=== PATIENT | male | born 1950 | race Caucasian/White ===

== ENCOUNTER 2016-07-21 19:00 | Emergency (ER) | payer BC, OTHER ==
[2016-07-21] MEDS ORDERED: ONDANSETRON 4MG/2ML VIAL (J2405) As Ordered ONE (19:59)
[2016-07-21] MEDS ORDERED: KETOROLAC 30 MG/ML VIAL (J1885) As Ordered ONE (19:59)
[2016-07-21 20:12] LABS: ALBUMIN 4.2 GM/DL (3.2-5.2); ALKALINE PHOSPHATASE 79 U/L (45-117); ALT/SGPT 56 U/L (12-78); AMYLASE 36 U/L (25-115); ANION GAP 8 MEQ/L (8-16); AST/SGOT 38 U/L (15-37); BILIRUBIN,DIRECT 0.1 MG/DL (0.0-0.2); BILIRUBIN,TOTAL 0.5 MG/DL (0.2-1.0); BLOOD UREA NITROGEN 26 MG/DL (7-18); CALCIUM LEVEL 9.7 MG/DL (8.8-10.2); CARBON DIOXIDE LEVEL 28 MEQ/L (21-32); CHLORIDE LEVEL 105 MEQ/L (98-107); CREATININE FOR GFR 1.23 MG/DL (0.70-1.30); GLOMERULAR FILTRATION RATE > 60.0 (>49); GLUCOSE, FASTING 129 MG/DL (80-110); POTASSIUM SERUM 3.7 MEQ/L (3.5-5.1); SODIUM LEVEL 141 MEQ/L (136-145); TOTAL PROTEIN 7.7 GM/DL (6.4-8.2)
[2016-07-21 20:18] LABS: BASO % 0.3 % (0.0-1.0); EOS # 0.1 K/mm3 (0.0-0.50); EOS % 0.6 % (0.0-3.0); LARGE UNSTAINED CELL # 0.1 K/mm3 (0.0-0.4); LARGE UNSTAINED CELL % 1.2 % (0.0-4.0); LYMPH # 1.3 K/mm3 (1.5-4.5); LYMPH % 14.5 % (24.0-44.0); MEAN CORPUSCULAR HEMOGLOBIN 32.8 pg (27.0-33.0); MEAN CORPUSCULAR HGB CONC 35.3 g/dl (32.0-36.5); MEAN CORPUSCULAR VOLUME 93.1 fl (80.0-96.0); MONO # 0.4 K/mm3 (0.0-0.8); MONO % 4.3 % (0.0-5.0); NEUTROPHILS # 7.2 K/mm3 (1.8-7.7); PLATELET COUNT, AUTOMATED 188 k/mm3 (150-450); RED CELL DISTRIBUTION WIDTH 12.3 % (11.5-14.5); WHITE BLOOD COUNT 9.1 K/mm3 (4.0-10.0)
[2016-07-21 20:36] LABS: CALCIUM OXALATE CRYSTALS LARGE
--- NOTE | 2016-07-21 21:00 | REPUSA ---
CT of the abdomen and pelvis without contrast Clinical statement: Pain. Technique: Multiple axial CT images were obtained from the base of the lungs to the floor of the pelv is utilizing 5 mm axial slices without administration of contrast. Coronal and sagittal reconstructio ns were also obtained. Comparison: 03/13/2014. Findings: Chest: The visualized lung bases are clear. Abdomen: The kidneys are normal in size bilaterally. There is moderate right-sided hydronephrosis cau sed by 4 mm stone in the mid right ureter. Tiny punctate stones are seen in the right renal collectin g system as well. The left renal collecting system is unremarkable. There is a large 2 cm simple cyst in the anterior right lobe of the liver. The liver, spleen, pancreas, gallbladder and adrenal glands are otherwise unremarkable. The aorta demonstrates normal caliber and contour. There is no abdominal lymphadenopathy or ascites. Pelvis: The bowel is unremarkable, with no obstructive or inflammatory changes. Left-sided diverticul osis is noted without evidence of diverticulitis. The appendix is normal. The urinary bladder is with in normal limits. There is no pelvic lymphadenopathy or ascites. The other pelvic structures appear u nremarkable. Bones: There are no suspicious osseous abnormalities seen. Multilevel degenerative disc disease with disc osteophyte complexes are seen from L2 through S1. Impression: 1. Moderate right-sided hydronephrosis and nephrolithiasis, with a 4 mm obstructing stone in the mid right ureter. 2. Left-sided diverticulosis without evidence of diverticulitis. No obstructive or inflammatory bowel changes. 3. 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
[2016-07-21] MEDS ORDERED: ONDANSETRON 4 MG ORAL DISINTEGRATING TAB (S0181) As Ordered ONE (21:54)
[2016-07-21] MEDS ORDERED: TAMSULOSIN 0.4 MG CAP As Ordered ONE (21:55)
[2016-07-21] MEDS ORDERED: NORCO 5/325MG TABLET (BULK) As Ordered ONE (21:55)
--- NOTE | 2016-07-21 22:05 | EDDOCDS ---
Physician Documentation [facility] Name: Dawood Velez Age: 65 yrs Sex: Male : 1950 Arrival Date: 07/21/2016 Time: 19:00 Bed I5 / M5 Private MD: Sherine Disposition: 07/21/16 21:43 Discharged to Home/Self Care. Impression: Calculus of ureter - WITH HYDRONEPHROSIS, 4 MM, RIGHT. - Condition is Stable. - Discharge Instructions: Kidney Stones, Ureteral Colic. - Prescriptions for Ibuprofen 600 mg Oral Tablet - take 1 tablet by ORAL route every 6 hours As needed take with food; 30 tablet. Tilden 5- 325 mg Oral Tablet - take 1 tablet by ORAL route every 6 hours As needed MDD: 4 tabs; 20 tablet. Flomax 0.4 mg Oral Capsule, Sust. Release 24 hr - take 1 capsule by ORAL route once daily 1/2 hour following the same meal each day; 30 capsule. ZOFRAN ODT 4 mg - dissolve 1 tablet by ORAL route 4 times per day As needed do not chew, do not swallow whole; 10 tablet. - Medication Reconciliation, Local Pharmacy Hours form. - Follow up: Josias Varela; When: 1 week; Reason: Recheck today's complaints, Continuance of care. Follow up: Emergency Department; When: As needed; Reason: Worsening of conditions. - Problem is new. - Symptoms have improved. - Notes: PLEASE USE MEDICATIONS INSTRUCTED, FOLLOW UP WITH DR VARELA IN 1 WEEK, RETURN TO THE ER IF THE SYMPTOMS WORSEN OR BECOME CONCERNING Historical: - Allergies: No known drug Allergies; - Home Meds: 1. Triamterene-Hydrochlorothiazid Oral 2. aspirin 81 mg Oral cpDR - PMHx: Hypertension; Kidney stones; - PSHx: none; basket procedure stone removal; - Social history: Smoking status: Patient states was never smoker of tobacco. No barriers to communication noted, The patient speaks fluent Persian, Speaks appropriately for age. - Family history: Not pertinent. - : The pt / caregiver states he / she is not on anticoagulants. Home medication list is obtained from the patient. - Exposure Risk Screening:: None identified. Vital Signs: 07/21 19:01 BP 154 / 93; Pulse 70; Resp 18; Temp 96.9(O); Pulse Ox 97% ; Weight 99.79 kg / 220 lbs; cmb Height 5 ft. 10 in. (177.80 cm); Pain 10/10; 20:20 Pain 4/10; ead 21:44 BP 134 / 82; Pulse 69; Resp 18; Temp 97.3; Pulse Ox 96% ; Pain 0/10; ajs 19:01 Body Mass Index 31.57 (99.79 kg, 177.80 cm) cmb MDM: 19:52 Undress patient appropriately for examination ordered. ck7 19:52 IV Saline Lock ordered. ck7 19:52 ketorolac 30 mg IVP once ordered. ck7 19:52 Ondansetron 4 mg IVP once ordered. ck7 19:54 Amylase Ordered. EDMS 19:54 Basic Metabolic Profile Ordered. EDMS 19:54 CBC with Diff Ordered. EDMS 19:54 Lipase Ordered. EDMS 19:54 Liver Profile Ordered. EDMS 19:54 Urinalysis Ordered. EDMS 19:54 Urine Culture Ordered. EDMS 19:54 NOTHING BY MOUTH+DIET ordered. EDMS 19:54 CT ABD & PELVIS: No Contrast Ordered. EDMS 20:42 Basic Metabolic Profile Reviewed. ck7 20:42 CBC with Diff Reviewed. ck7 20:42 Liver Profile Reviewed. ck7 20:42 Urinalysis Reviewed. ck7 20:42 Amylase Reviewed. ck7 20:42 Lipase Reviewed. ck7 21:03 Financial registration complete. ks16 21:33 CT ABD & PELVIS: No Contrast Reviewed. ck7 21:39 Physician consultation: Dr. Josias Varela was contacted at 21:38, PT IS PRIVATE PT OF ck7 DR VARELA, CALLED DR VARELA D/T HIGH BUN, ADVISED OF PRESENTATION, PHYSICAL EXAM, LABS AND IMAGAING. PT TO BE PLACED ON ZOFRAN, NORCO, MOTRIN AND FLOMAX, INCREASE FLUIDS AT HOME, STRAIN URINE MUCH POSSIBLE, FOLLOW UP WITH DR VARELA IN NEXT 7-14 DAYS, RETURN TO THE ER IF THE SYMPTOMS WORSEN OR BECOME CONCERNING. 21:42 Dispense Urine Strainer ordered. ck7 21:42 Tamsulosin Extended Release 24 hour Capsule 0.4 mg PO once ordered. ck7 21:42 HYDROcodone-acetaminophen 4 pack- 5 mg-325 mg 1 packets PO Per package directions; ck7 Dispense with patient. 1 po q4h prn for pain ordered. 21:42 Ondansetron ODT Oral Disintegrating Tablet 4 mg PO once; PLEASE DISPENSE TO GO HOME ck7 WITH ordered. Administered Medications: 20:03 Drug: ketorolac 30 mg [ketorolac 30 mg/mL (1 mL) injection solution (1 mL)] Route: IVP; dsf Site: left antecubital; 20:20 Follow up: Pain 4/10 Adult; Response: No Adverse Reaction; Pain is decreased ead 20:03 Drug: Ondansetron 4 mg [ondansetron HCl 2 mg/mL intravenous solution (2 mL)] Route: dsf IVP; Site: left antecubital; 20:21 Follow up: Response: Nausea is resolved; No Adverse Reaction ead 22:01 Drug: Tamsulosin 0.4 mg [tamsulosin 0.4 mg capsule (1 caps)] Route: PO; ead 22:01 Drug: HYDROcodone-acetaminophen 4 pack- 1 packets [hydrocodone 5 mg-acetaminophen 325 ead mg tablet (1 tabs)] {Co-Signature: dsdomingo (Trinh Reynolds RN).} {Note: for take home use.} Route: PO; 22:01 Drug: Ondansetron ODT 4 mg [ondansetron 4 mg disintegrating tablet (1 tabs)] {Note: for ead take home use.} Route: PO; Signatures: Dispatcher [employer] Talib Islas RN RN cz Fuller, Desiree, RN RN dsf Kwaczala, Christopher, RPA-C RPA-Cck7 [place], Cody Reg [id number] Teri Brown RN, RN MTDD
--- NOTE | 2016-07-21 22:05 | EDDOCDS ---
Nurse's Notes [facility] Name: Dawood Velez Age: 65 yrs Sex: Male : 1950 Arrival Date: 07/21/2016 Time: 19:00 Bed I5 / M5 Private MD: Sherine Diagnosis: Calculus of ureter-WITH HYDRONEPHROSIS, 4 MM, RIGHT Presentation: 07/21 19:11 Presenting complaint: Patient states: he has had right sided flank and abdominal pain cz since 1600 states had some pain on new years zach. Adult Sepsis Screening: The patient does not have new or worsening altered mentation. Patient's respiratory rate is less than 22. Systolic blood pressure is greater than 100. Patient has a qSOFA score of 0- Negative Sepsis Screen. Suicide/Homicide risk assessment- the patient denies having any suicidal and/or homicidal ideations and does not present with any other emotional, behavioral or mental health complaints. Status: Patient is not a rn patient services or dependent. Transition of care: patient was not received from another setting of care. 19:11 Acuity: XIAO Level 3 cz 19:11 Method Of Arrival: Walkin/Carried/Asstd cz Triage Assessment: 19:14 General: Appears uncomfortable. Pain: Location: low back area and right flank Pain cz currently is 10 out of 10 on a pain scale. HIV screening NA for this visit Offered previously. Historical: - Allergies: No known drug Allergies; - Home Meds: 1. Triamterene-Hydrochlorothiazid Oral 2. aspirin 81 mg Oral cpDR - PMHx: Hypertension; Kidney stones; - PSHx: none; basket procedure stone removal; - Social history: Smoking status: Patient states was never smoker of tobacco. No barriers to communication noted, The patient speaks fluent Belarusian, Speaks appropriately for age. - Family history: Not pertinent. - : The pt / caregiver states he / she is not on anticoagulants. Home medication list is obtained from the patient. - Exposure Risk Screening:: None identified. Screenin:03 Screening information is obtained from the patient. Fall risk: No risks identified. dsf Assistance ADL's: requires no assistance with activities of daily living. Abuse/DV Screen: The patient / caregiver reports he/she is: not in a situation that causes fear, pain or injury. Nutritional screening: No deficits noted. Advance Directives: Currently, there is no health care proxy. home support is adequate. Assessment: 19:29 General: Appears uncomfortable, Behavior is appropriate for age, cooperative. ead Neurological: No deficits noted. Respiratory: Airway is patent Respiratory effort is even, unlabored. Derm: Skin is pink, warm & dry. 20:31 General: Appears in no apparent distress, comfortable, Behavior is appropriate for age, dsf cooperative, pt walked back from CT . Pain: Location: right flank Pain currently is 2 out of 10 on a pain scale. Neurological: Level of Consciousness is awake, alert. Cardiovascular: No deficits noted. Respiratory: No deficits noted. GI: Abdomen is non- distended. Derm: Skin is pink, warm & dry. 22:02 Adult Sepsis Screening: The patient does not have new or worsening altered mentation. dsf Patient's respiratory rate is less than 22. Systolic blood pressure is greater than 100. Patient has a qSOFA score of 0- Negative Sepsis Screen. General: Appears in no apparent distress, comfortable, Behavior is appropriate for age, cooperative. Pain: Pain currently is 2 out of 10 on a pain scale. Neurological: Level of Consciousness is awake, alert. Cardiovascular: Capillary refill < 3 seconds. Respiratory: Airway is patent Respiratory effort is even, unlabored, Respiratory pattern is regular, symmetrical. GI: Abdomen is non- distended Bowel sounds present X 4 quads. Abd is soft and non tender X 4 quads. Derm: Skin is pink, warm & dry. Vital Signs: 19:01 BP 154 / 93; Pulse 70; Resp 18; Temp 96.9(O); Pulse Ox 97% ; Weight 99.79 kg; Height 5 cmb ft. 10 in. (177.80 cm); Pain 10/10; 20:20 Pain 4/10; ead 21:44 BP 134 / 82; Pulse 69; Resp 18; Temp 97.3; Pulse Ox 96% ; Pain 0/10; ajs 19:01 Body Mass Index 31.57 (99.79 kg, 177.80 cm) [facility] Vitals: 19:01 Log In Time: July 21, 2016 at 18:59. b ED Course: 19:00 Patient visited by Mirian Perdomo. cmb 19:00 Patient moved to Waiting [facility] 19:01 Sherine is Private Physician. cmb 19:02 Patient moved to Pre RCE cmb 19:13 Triage Initiated cz 19:16 Patient moved to I5 / M5 dsf 19:29 Inserted saline lock: 20 gauge in left antecubital area and blood collected. The ead patient tolerated the procedure well. 19:31 Patient visited by Teri Brown RN. ead 19:50 K[facility]barca [facility]C [facility] ck7 19:50 Vincent Johnson MD is Attending Physician. ck7 19:50 Patient visited by Kali Abarca RPA-C. ck7 20:20 Patient visited by eTri Brown RN. ead 20:21 The patient / caregiver is instructed regarding the plan of care and ED course. Patient ead has correct armband on for positive identification. Placed in gown. Bed in low position. Call light in reach. Side rails up X 1. Adult w/ patient. Warm blanket given. 20:21 Urinalysis Sent. ead 20:21 Urine Culture Sent. ead 20:31 Patient visited by Trinh Reynolds RN. dsf 21:02 Patient visited by Kali Abarca RPA-C. ck7 21:33 CT ABD & PELVIS: No Contrast Returned. EDMS 21:39 Patient visited by Kali Abarca RPA-C. ck7 21:42 Josias Lynch is Referral Physician. ck7 21:45 Patient visited by Marissa Rubin. ajs 22:03 Discontinued lock intact, bleeding controlled, pressure dressing applied, No dsf redness/swelling at site. No procedures done that require assistance. Administered Medications: 20:03 Drug: ketorolac 30 mg [ketorolac 30 mg/mL (1 mL) injection solution (1 mL)] Route: IVP; dsf Site: left antecubital; 20:20 Follow up: Pain 4/10 Adult; Response: No Adverse Reaction; Pain is decreased ead 20:03 Drug: Ondansetron 4 mg [ondansetron HCl 2 mg/mL intravenous solution (2 mL)] Route: dsf IVP; Site: left antecubital; 20:21 Follow up: Response: Nausea is resolved; No Adverse Reaction ead 22:01 Drug: Tamsulosin 0.4 mg [tamsulosin 0.4 mg capsule (1 caps)] Route: PO; ead 22:01 Drug: HYDROcodone-acetaminophen 4 pack- 1 packets [hydrocodone 5 mg-acetaminophen 325 ead mg tablet (1 tabs)] {Co-Signature: dsf (Trinh Reynolds RN).} {Note: for take home use.} Route: PO; 22:01 Drug: Ondansetron ODT 4 mg [ondansetron 4 mg disintegrating tablet (1 tabs)] {Note: for ead take home use.} Route: PO; Order Results: Lab Order: Amylase; SPEC'M 07/21/16 19:27 Test: AMYLASE; Value: 36; Range: 25-115; Units: U/L; Status: F Lab Order: Basic Metabolic Profile; SPEC'M 07/21/16 19:27 Test: GLUCOSE, FASTING; Value: 129; Range: 80-110; Abnormal: Above high normal; Units: MG/DL; Status: F Test: BLOOD UREA NITROGEN; Value: 26; Range: 7-18; Abnormal: Above high normal; Units: MG/DL; Status: F Test: CREATININE FOR GFR; Value: 1.23; Range: 0.70-1.30; Units: MG/DL; Status: F Test: GLOMERULAR FILTRATION RATE; Value: > 60.0; Range: >49; Status: F Test: SODIUM LEVEL; Value: 141; Range: 136-145; Units: MEQ/L; Status: F Test: POTASSIUM SERUM; Value: 3.7; Range: 3.5-5.1; Units: MEQ/L; Status: F Test: CHLORIDE LEVEL; Value: 105; Range: 98-107; Units: MEQ/L; Status: F Test: CARBON DIOXIDE LEVEL; Value: 28; Range: 21-32; Units: MEQ/L; Status: F Test: ANION GAP; Value: 8; Range: 8-16; Units: MEQ/L; Status: F Test: CALCIUM LEVEL; Value: 9.7; Range: 8.8-10.2; Units: MG/DL; Status: F Test Note: ; Units are mL/min/1.73 m2 Chronic Kidney Disease Staging per NKF: Stage I & II GFR >=60 Normal to Mildly Decreased Stage III GFR 30-59 Moderately Decreased Stage IV GFR 15-29 Severely Decreased Stage V GFR <15 Very Little GFR Left ESRD GFR <15 on STATISTICAL PROGRAMMER Lab Order: CBC with Diff; [facility] 07/21/16 19:27 Test: WHITE BLOOD COUNT; Value: 9.1; Range: 4.0-10.0; Units: K/mm3; Status: F Test: RED BLOOD COUNT; Value: 5.12; Range: 4.30-6.10; Units: M/mm3; Status: F Test: HEMOGLOBIN; Value: 16.8; Range: 14.0-18.0; Units: g/dl; Status: F Test: HEMATOCRIT; Value: 47.6; Range: 42.0-52.0; Units: %; Status: F Test: MEAN CORPUSCULAR VOLUME; Value: 93.1; Range: 80.0-96.0; Units: fl; Status: F Test: MEAN CORPUSCULAR HEMOGLOBIN; Value: 32.8; Range: 27.0-33.0; Units: pg; Status: F Test: MEAN CORPUSCULAR HGB CONC; Value: 35.3; Range: 32.0-36.5; Units: g/dl; Status: F Test: RED CELL DISTRIBUTION WIDTH; Value: 12.3; Range: 11.5-14.5; Units: %; Status: F Test: PLATELET COUNT, AUTOMATED; Value: 188; Range: 150-450; Units: k/mm3; Status: F Test: NEUTROPHILS %; Value: 79.0; Range: 36.0-66.0; Abnormal: Above high normal; Units: %; Status: F Test: LYMPH %; Value: 14.5; Range: 24.0-44.0; Abnormal: Below low normal; Units: %; Status: F Test: MONO %; Value: 4.3; Range: 0.0-5.0; Units: %; Status: F Test: EOS %; Value: 0.6; Range: 0.0-3.0; Units: %; Status: F Test: BASO %; Value: 0.3; Range: 0.0-1.0; Units: %; Status: F Test: LARGE UNSTAINED CELL %; Value: 1.2; Range: 0.0-4.0; Units: %; Status: F Test: NEUTROPHILS #; Value: 7.2; Range: 1.8-7.7; Units: K/mm3; Status: F Test: LYMPH #; Value: 1.3; Range: 1.5-4.5; Abnormal: Below low normal; Units: K/mm3; Status: F Test: MONO #; Value: 0.4; Range: 0.0-0.8; Units: K/mm3; Status: F Test: EOS #; Value: 0.1; Range: 0.0-0.50; Units: K/mm3; Status: F Test: BASO #; Value: 0.0; Range: 0.0-0.2; Units: K/mm3; Status: F Test: LARGE UNSTAINED CELL #; Value: 0.1; Range: 0.0-0.4; Units: K/mm3; Status: F Lab Order: Lipase; [facility] 07/21/16 19:27 Test: LIPASE; Value: 84; Range: 73-393; Units: U/L; Status: F Lab Order: Liver Profile; [facility] 07/21/16 19:27 Test: AST/SGOT; Value: 38; Range: 15-37; Abnormal: Above high normal; Units: U/L; Status: F Test: ALT/SGPT; Value: 56; Range: 12-78; Units: U/L; Status: F Test: ALKALINE PHOSPHATASE; Value: 79; Range: 45-117; Units: U/L; Status: F Test: BILIRUBIN,TOTAL; Value: 0.5; Range: 0.2-1.0; Units: MG/DL; Status: F Test: BILIRUBIN,DIRECT; Value: 0.1; Range: 0.0-0.2; Units: MG/DL; Status: F Test: TOTAL PROTEIN; Value: 7.7; Range: 6.4-8.2; Units: GM/DL; Status: F Test: ALBUMIN; Value: 4.2; Range: 3.2-5.2; Units: GM/DL; Status: F Test: ALBUMIN/GLOBULIN RATIO; Value: 1.20; Range: 1.00-1.93; Status: F Lab Order: Urinalysis; [facility] 07/21/16 20:12 Test: APPEARANCE, URINE; Value: HAZY; Range: CLEAR; Status: F Test: COLOR, URINE; Value: YELLOW; Range: YELLOW; Status: F Test: PH,URINE; Value: 5.0; Range: 5.0-9.0; Units: UNITS; Status: F Test: SPECIFIC GRAVITY URINE AUTO; Value: 1.023; Range: 1.002-1.035; Status: F Test: PROTEIN, URINE AUTO; Value: 1+; Range: NEGATIVE; Abnormal: Above high normal; Units: mg/dL; Status: F Test: GLUCOSE, URINE (UA) AUTO; Value: NEGATIVE; Range: NEGATIVE; Units: mg/dL; Status: F Test: KETONE, URINE AUTO; Value: 1+; Range: NEGATIVE; Abnormal: Above high normal; Units: mg/dL; Status: F Test: UROBILINOGEN, URINE AUTO; Value: 0.2; Range: 0.0-2.0; Units: mg/dL; Status: F Test: BILIRUBIN, URINE AUTO; Value: NEGATIVE; Range: NEGATIVE; Status: F Test: NITRITE, URINE AUTO; Value: NEGATIVE; Range: NEGATIVE; Status: F Test: LEUKOCYTE ESTERASE, URINE AUTO; Value: NEGATIVE; Range: NEGATIVE; Status: F Test: BLOOD, URINE BLOOD; Value: 3+; Range: NEGATIVE; Abnormal: Above high normal; Status: F Test: WBC, URINE AUTO; Value: 4; Range: 0-3; Abnormal: Above high normal; Units: /HPF; Status: F Test: RBC, URINE AUTO; Value: 142; Range: 0-3; Abnormal: Above high normal; Units: /HPF; Status: F Test: BACTERIA, URINE AUTO; Value: NEGATIVE; Range: NEGATIVE; Status: F Test: SQUAMOUS EPITHELIAL CELL UR AU; Value: 0; Range: 0-6; Units: /HPF; Status: F Test: MUCUS, URINE; Value: SMALL; Range: NEGATIVE; Status: F Test: HYALINE CAST, URINE AUTO; Value: 0; Range: 0-1; Units: /LPF; Status: F Test: AMORPHOUS SEDIMENT; Value: SMALL; Range: NEGATIVE; Abnormal: Above high normal; Status: F Test: CALCIUM OXALATE CRYSTALS; Value: LARGE; Range: NONE; Status: F Radiology Order: CT ABD & PELVIS: No Contrast Test: CT ABD & PELVIS: No Contrast REASON FOR EXAMINATION: Renal colic; ; CT of the abdomen and pelvis without contrast; Clinical statement: Pain.; Technique: Multiple axial CT images were obtained from the base of the lungs to the floor of the pelv; is utilizing 5 mm axial slices without administration of contrast. Coronal and sagittal reconstructio; ns were also obtained.; Comparison: 03/13/2014.; Findings:; Chest: The visualized lung bases are clear.; Abdomen: The kidneys are normal in size bilaterally. There is moderate right-sided hydronephrosis cau; sed by 4 mm stone in the mid right ureter. Tiny punctate stones are seen in the right renal collectin; g system as well. The left renal collecting system is unremarkable. There is a large 2 cm simple cyst; in the anterior right lobe of the liver. The liver, spleen, pancreas, gallbladder and adrenal glands; are otherwise unremarkable. The aorta demonstrates normal caliber and contour. There is no abdominal; lymphadenopathy or ascites.; Pelvis: The bowel is unremarkable, with no obstructive or inflammatory changes. Left-sided diverticul; osis is noted without evidence of diverticulitis. The appendix is normal. The urinary bladder is with; in normal limits. There is no pelvic lymphadenopathy or ascites. The other pelvic structures appear u; nremarkable.; Bones: There are no suspicious osseous abnormalities seen. Multilevel degenerative disc disease with; disc osteophyte complexes are seen from L2 through S1.; Impression:; 1. Moderate right-sided hydronephrosis and nephrolithiasis, with a 4 mm obstructing stone in the mid; right ureter.; 2. Left-sided diverticulosis without evidence of diverticulitis. No obstructive or inflammatory bowel; changes.; 3. 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 ck7 22:03 Discharge Assessment: Patient awake, alert and oriented x 3. No cognitive and/or dsf functional deficits noted. Patient verbalized understanding of disposition instructions. patient administered narcotics - no. The following High Risk Discharge criteria are identified: None. Discharged to home ambulatory. Condition: stable. Discharge instructions given to patient, Instructed on discharge instructions, follow up and referral plans. medication usage, no driving heavy equipment, Demonstrated understanding of instructions, medications, Pt was receptive of discharge instructions/ teaching. Prescriptions given X 4. CT Study completed. Property sent home with patient. 22:03 Patient left the ED. dsf Signatures: Dispatcher [employer] Talib Islas, Trinh Ling RN, RN RN dsf Marissa Rubin [place] cmb Kwaczala, Christopher, RPA-C RPA-Cck7 Teri Brown RN RN ead Desiree Fuller RN dsf MTDD
--- NOTE | 2016-07-23 23:04 | EDDOCDS ---
Nurse's Notes [facility], [place] Name: Dawood Velez Age: 65 yrs Sex: Male : 1950 Arrival Date: 07/21/2016 Time: 19:00 Bed I5 / M5 Private MD: Sherine Diagnosis: Calculus of ureter-WITH HYDRONEPHROSIS, 4 MM, RIGHT Presentation: 07/21 19:11 Presenting complaint: Patient states: he has had right sided flank and abdominal pain cz since 1600 states had some pain on new years zach. Adult Sepsis Screening: The patient does not have new or worsening altered mentation. Patient's respiratory rate is less than 22. Systolic blood pressure is greater than 100. Patient has a qSOFA score of 0- Negative Sepsis Screen. Suicide/Homicide risk assessment- the patient denies having any suicidal and/or homicidal ideations and does not present with any other emotional, behavioral or mental health complaints. Status: Patient is not a food service agent or dependent. Transition of care: patient was not received from another setting of care. 19:11 Acuity: XIAO Level 3 cz 19:11 Method Of Arrival: Walkin/Carried/Asstd cz Triage Assessment: 19:14 General: Appears uncomfortable. Pain: Location: low back area and right flank Pain cz currently is 10 out of 10 on a pain scale. HIV screening NA for this visit Offered previously. Historical: - Allergies: No known drug Allergies; - Home Meds: 1. Triamterene-Hydrochlorothiazid Oral 2. aspirin 81 mg Oral cpDR - PMHx: Hypertension; Kidney stones; - PSHx: none; basket procedure stone removal; - Social history: Smoking status: Patient states was never smoker of tobacco. No barriers to communication noted, The patient speaks fluent Turkish, Speaks appropriately for age. - Family history: Not pertinent. - : The pt / caregiver states he / she is not on anticoagulants. Home medication list is obtained from the patient. - Exposure Risk Screening:: None identified. Screenin:03 Screening information is obtained from the patient. Fall risk: No risks identified. dsf Assistance ADL's: requires no assistance with activities of daily living. Abuse/DV Screen: The patient / caregiver reports he/she is: not in a situation that causes fear, pain or injury. Nutritional screening: No deficits noted. Advance Directives: Currently, there is no health care proxy. home support is adequate. Assessment: 19:29 General: Appears uncomfortable, Behavior is appropriate for age, cooperative. ead Neurological: No deficits noted. Respiratory: Airway is patent Respiratory effort is even, unlabored. Derm: Skin is pink, warm & dry. 20:31 General: Appears in no apparent distress, comfortable, Behavior is appropriate for age, dsf cooperative, pt walked back from CT . Pain: Location: right flank Pain currently is 2 out of 10 on a pain scale. Neurological: Level of Consciousness is awake, alert. Cardiovascular: No deficits noted. Respiratory: No deficits noted. GI: Abdomen is non- distended. Derm: Skin is pink, warm & dry. 22:02 Adult Sepsis Screening: The patient does not have new or worsening altered mentation. dsf Patient's respiratory rate is less than 22. Systolic blood pressure is greater than 100. Patient has a qSOFA score of 0- Negative Sepsis Screen. General: Appears in no apparent distress, comfortable, Behavior is appropriate for age, cooperative. Pain: Pain currently is 2 out of 10 on a pain scale. Neurological: Level of Consciousness is awake, alert. Cardiovascular: Capillary refill < 3 seconds. Respiratory: Airway is patent Respiratory effort is even, unlabored, Respiratory pattern is regular, symmetrical. GI: Abdomen is non- distended Bowel sounds present X 4 quads. Abd is soft and non tender X 4 quads. Derm: Skin is pink, warm & dry. Vital Signs: 19:01 BP 154 / 93; Pulse 70; Resp 18; Temp 96.9(O); Pulse Ox 97% ; Weight 99.79 kg; Height 5 cmb ft. 10 in. (177.80 cm); Pain 10/10; 20:20 Pain 4/10; ead 21:44 BP 134 / 82; Pulse 69; Resp 18; Temp 97.3; Pulse Ox 96% ; Pain 0/10; ajs 19:01 Body Mass Index 31.57 (99.79 kg, 177.80 cm) [facility] Vitals: 19:01 Log In Time: July 21, 2016 at 18:59. b ED Course: 19:00 Patient visited by Mirian Perdomo. cmb 19:00 Patient moved to Waiting [facility] 19:01 Sherine is Private Physician. cmb 19:02 Patient moved to Pre RCE cmb 19:13 Triage Initiated cz 19:16 Patient moved to I5 / M5 dsf 19:29 Inserted saline lock: 20 gauge in left antecubital area and blood collected. The ead patient tolerated the procedure well. 19:31 Patient visited by Teri Brown RN. ead 19:50 [facility] ck[facility] 19:50 Vincent Johnson MD is Attending Physician. ck7 19:50 Patient visited by Kali Abarca RPA-C. ck7 20:20 Patient visited by Teri Brown RN. ead 20:21 The patient / caregiver is instructed regarding the plan of care and ED course. Patient ead has correct armband on for positive identification. Placed in gown. Bed in low position. Call light in reach. Side rails up X 1. Adult w/ patient. Warm blanket given. 20:21 Urinalysis Sent. ead 20:21 Urine Culture Sent. ead 20:31 Patient visited by Trinh Reynolds RN. dsf 21:02 Patient visited by Kali Abarca RPA-C. ck7 21:33 CT ABD & PELVIS: No Contrast Returned. EDMS 21:39 Patient visited by Kali Abarca RPA-C. ck7 21:42 Josias Lynch is Referral Physician. ck7 21:45 Patient visited by Marissa Rubin. ajs 22:03 Discontinued lock intact, bleeding controlled, pressure dressing applied, No dsf redness/swelling at site. No procedures done that require assistance. 23:02 [facility] Payment Agreement was scanned into [employer] and attached to record. [email or web address] 07/22 12:00 T-Sheet-- Draft Copy was scanned into [employer] and attached to record. gb Administered Medications: 07/21 20:03 Drug: ketorolac 30 mg [ketorolac 30 mg/mL (1 mL) injection solution (1 mL)] Route: IVP; dsf Site: left antecubital; 20:20 Follow up: Pain 4/10 Adult; Response: No Adverse Reaction; Pain is decreased ead 20:03 Drug: Ondansetron 4 mg [ondansetron HCl 2 mg/mL intravenous solution (2 mL)] Route: dsf IVP; Site: left antecubital; 20:21 Follow up: Response: Nausea is resolved; No Adverse Reaction ead 22: Drug: Tamsulosin 0.4 mg [tamsulosin 0.4 mg capsule (1 caps)] Route: PO; ead 22:01 Drug: HYDROcodone-acetaminophen 4 pack- 1 packets [hydrocodone 5 mg-acetaminophen 325 ead mg tablet (1 tabs)] {Co-Signature: dsf (Trinh Reynolds RN).} {Note: for take home use.} Route: PO; 22:01 Drug: Ondansetron ODT 4 mg [ondansetron 4 mg disintegrating tablet (1 tabs)] {Note: for ead take home use.} Route: PO; Order Results: Lab Order: Amylase; SPEC'M 07/21/16 19:27 Test: AMYLASE; Value: 36; Range: 25-115; Units: U/L; Status: F Lab Order: Basic Metabolic Profile; SPEC'M 07/21/16 19:27 Test: GLUCOSE, FASTING; Value: 129; Range: 80-110; Abnormal: Above high normal; Units: MG/DL; Status: F Test: BLOOD UREA NITROGEN; Value: 26; Range: 7-18; Abnormal: Above high normal; Units: MG/DL; Status: F Test: CREATININE FOR GFR; Value: 1.23; Range: 0.70-1.30; Units: MG/DL; Status: F Test: GLOMERULAR FILTRATION RATE; Value: > 60.0; Range: >49; Status: F Test: SODIUM LEVEL; Value: 141; Range: 136-145; Units: MEQ/L; Status: F Test: POTASSIUM SERUM; Value: 3.7; Range: 3.5-5.1; Units: MEQ/L; Status: F Test: CHLORIDE LEVEL; Value: 105; Range: 98-107; Units: MEQ/L; Status: F Test: CARBON DIOXIDE LEVEL; Value: 28; Range: 21-32; Units: MEQ/L; Status: F Test: ANION GAP; Value: 8; Range: 8-16; Units: MEQ/L; Status: F Test: CALCIUM LEVEL; Value: 9.7; Range: 8.8-10.2; Units: MG/DL; Status: F Test Note: ; Units are mL/min/1.73 m2 Chronic Kidney Disease Staging per NKF: Stage I & II GFR >=60 Normal to Mildly Decreased Stage III GFR 30-59 Moderately Decreased Stage IV GFR 15-29 Severely Decreased Stage V GFR <15 Very Little GFR Left ESRD GFR <15 on POLICE [employer] ATTENDANT Lab Order: CBC with Diff; SPEC'M 07/21/16 19:27 Test: WHITE BLOOD COUNT; Value: 9.1; Range: 4.0-10.0; Units: K/mm3; Status: F Test: RED BLOOD COUNT; Value: 5.12; Range: 4.30-6.10; Units: M/mm3; Status: F Test: HEMOGLOBIN; Value: 16.8; Range: 14.0-18.0; Units: g/dl; Status: F Test: HEMATOCRIT; Value: 47.6; Range: 42.0-52.0; Units: %; Status: F Test: MEAN CORPUSCULAR VOLUME; Value: 93.1; Range: 80.0-96.0; Units: fl; Status: F Test: MEAN CORPUSCULAR HEMOGLOBIN; Value: 32.8; Range: 27.0-33.0; Units: pg; Status: F Test: MEAN CORPUSCULAR HGB CONC; Value: 35.3; Range: 32.0-36.5; Units: g/dl; Status: F Test: RED CELL DISTRIBUTION WIDTH; Value: 12.3; Range: 11.5-14.5; Units: %; Status: F Test: PLATELET COUNT, AUTOMATED; Value: 188; Range: 150-450; Units: k/mm3; Status: F Test: NEUTROPHILS %; Value: 79.0; Range: 36.0-66.0; Abnormal: Above high normal; Units: %; Status: F Test: LYMPH %; Value: 14.5; Range: 24.0-44.0; Abnormal: Below low normal; Units: %; Status: F Test: MONO %; Value: 4.3; Range: 0.0-5.0; Units: %; Status: F Test: EOS %; Value: 0.6; Range: 0.0-3.0; Units: %; Status: F Test: BASO %; Value: 0.3; Range: 0.0-1.0; Units: %; Status: F Test: LARGE UNSTAINED CELL %; Value: 1.2; Range: 0.0-4.0; Units: %; Status: F Test: NEUTROPHILS #; Value: 7.2; Range: 1.8-7.7; Units: K/mm3; Status: F Test: LYMPH #; Value: 1.3; Range: 1.5-4.5; Abnormal: Below low normal; Units: K/mm3; Status: F Test: MONO #; Value: 0.4; Range: 0.0-0.8; Units: K/mm3; Status: F Test: EOS #; Value: 0.1; Range: 0.0-0.50; Units: K/mm3; Status: F Test: BASO #; Value: 0.0; Range: 0.0-0.2; Units: K/mm3; Status: F Test: LARGE UNSTAINED CELL #; Value: 0.1; Range: 0.0-0.4; Units: K/mm3; Status: F Lab Order: Lipase; SPEC' 07/21/16 19:27 Test: LIPASE; Value: 84; Range: 73-393; Units: U/L; Status: F Lab Order: Liver Profile; SPEC' 07/21/16 19:27 Test: AST/SGOT; Value: 38; Range: 15-37; Abnormal: Above high normal; Units: U/L; Status: F Test: ALT/SGPT; Value: 56; Range: 12-78; Units: U/L; Status: F Test: ALKALINE PHOSPHATASE; Value: 79; Range: 45-117; Units: U/L; Status: F Test: BILIRUBIN,TOTAL; Value: 0.5; Range: 0.2-1.0; Units: MG/DL; Status: F Test: BILIRUBIN,DIRECT; Value: 0.1; Range: 0.0-0.2; Units: MG/DL; Status: F Test: TOTAL PROTEIN; Value: 7.7; Range: 6.4-8.2; Units: GM/DL; Status: F Test: ALBUMIN; Value: 4.2; Range: 3.2-5.2; Units: GM/DL; Status: F Test: ALBUMIN/GLOBULIN RATIO; Value: 1.20; Range: 1.00-1.93; Status: F Lab Order: Urinalysis; SPEC'M 07/21/16 20:12 Test: APPEARANCE, URINE; Value: HAZY; Range: CLEAR; Status: F Test: COLOR, URINE; Value: YELLOW; Range: YELLOW; Status: F Test: PH,URINE; Value: 5.0; Range: 5.0-9.0; Units: UNITS; Status: F Test: SPECIFIC GRAVITY URINE AUTO; Value: 1.023; Range: 1.002-1.035; Status: F Test: PROTEIN, URINE AUTO; Value: 1+; Range: NEGATIVE; Abnormal: Above high normal; Units: mg/dL; Status: F Test: GLUCOSE, URINE (UA) AUTO; Value: NEGATIVE; Range: NEGATIVE; Units: mg/dL; Status: F Test: KETONE, URINE AUTO; Value: 1+; Range: NEGATIVE; Abnormal: Above high normal; Units: mg/dL; Status: F Test: UROBILINOGEN, URINE AUTO; Value: 0.2; Range: 0.0-2.0; Units: mg/dL; Status: F Test: BILIRUBIN, URINE AUTO; Value: NEGATIVE; Range: NEGATIVE; Status: F Test: NITRITE, URINE AUTO; Value: NEGATIVE; Range: NEGATIVE; Status: F Test: LEUKOCYTE ESTERASE, URINE AUTO; Value: NEGATIVE; Range: NEGATIVE; Status: F Test: BLOOD, URINE BLOOD; Value: 3+; Range: NEGATIVE; Abnormal: Above high normal; Status: F Test: WBC, URINE AUTO; Value: 4; Range: 0-3; Abnormal: Above high normal; Units: /HPF; Status: F Test: RBC, URINE AUTO; Value: 142; Range: 0-3; Abnormal: Above high normal; Units: /HPF; Status: F Test: BACTERIA, URINE AUTO; Value: NEGATIVE; Range: NEGATIVE; Status: F Test: SQUAMOUS EPITHELIAL CELL UR AU; Value: 0; Range: 0-6; Units: /HPF; Status: F Test: MUCUS, URINE; Value: SMALL; Range: NEGATIVE; Status: F Test: HYALINE CAST, URINE AUTO; Value: 0; Range: 0-1; Units: /LPF; Status: F Test: AMORPHOUS SEDIMENT; Value: SMALL; Range: NEGATIVE; Abnormal: Above high normal; Status: F Test: CALCIUM OXALATE CRYSTALS; Value: LARGE; Range: NONE; Status: F Lab Order: Urine Culture; SPEC'M 07/21/16 20:13 Test: URINE CULTURE; Value: URINE CULTURE RESULT NO GROWTH; Status: F Radiology Order: CT ABD & PELVIS: No Contrast Test: CT ABD & PELVIS: No Contrast REASON FOR EXAMINATION: Renal colic; ; CT of the abdomen and pelvis without contrast; Clinical statement: Pain.; Technique: Multiple axial CT images were obtained from the base of the lungs to the floor of the pelv; is utilizing 5 mm axial slices without administration of contrast. Coronal and sagittal reconstructio; ns were also obtained.; Comparison: 03/13/2014.; Findings:; Chest: The visualized lung bases are clear.; Abdomen: The kidneys are normal in size bilaterally. There is moderate right-sided hydronephrosis cau; sed by 4 mm stone in the mid right ureter. Tiny punctate stones are seen in the right renal collectin; g system as well. The left renal collecting system is unremarkable. There is a large 2 cm simple cyst; in the anterior right lobe of the liver. The liver, spleen, pancreas, gallbladder and adrenal glands; are otherwise unremarkable. The aorta demonstrates normal caliber and contour. There is no abdominal; lymphadenopathy or ascites.; Pelvis: The bowel is unremarkable, with no obstructive or inflammatory changes. Left-sided diverticul; osis is noted without evidence of diverticulitis. The appendix is normal. The urinary bladder is with; in normal limits. There is no pelvic lymphadenopathy or ascites. The other pelvic structures appear u; nremarkable.; Bones: There are no suspicious osseous abnormalities seen. Multilevel degenerative disc disease with; disc osteophyte complexes are seen from L2 through S1.; Impression:; 1. Moderate right-sided hydronephrosis and nephrolithiasis, with a 4 mm obstructing stone in the mid; right ureter.; 2. Left-sided diverticulosis without evidence of diverticulitis. No obstructive or inflammatory bowel; changes.; 3. 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 ck7 22:03 Discharge Assessment: Patient awake, alert and oriented x 3. No cognitive and/or dsf functional deficits noted. Patient verbalized understanding of disposition instructions. patient administered narcotics - no. The following High Risk Discharge criteria are identified: None. Discharged to home ambulatory. Condition: stable. Discharge instructions given to patient, Instructed on discharge instructions, follow up and referral plans. medication usage, no driving heavy equipment, Demonstrated understanding of instructions, medications, Pt was receptive of discharge instructions/ teaching. Prescriptions given X 4. CT Study completed. Property sent home with patient. 22:03 Patient left the ED. dsf Signatures: Dispatcher [employer] EDMS Talib Mckeon, RN RN cz eBthanie Rodas, Reg Reg gb Trinh Reynolds RN RN dsf Marissa Rubin [place] cmb Kwaczala, Christopher, RPA-C RPA-Cck7 Teri Brown,RN RN Chetna Moses, Reg Reg ks16 Trinh Reynolds RN dsf Chart Complete MTDD
--- NOTE | 2016-07-23 23:04 | EDDOCDS ---
Physician Documentation [facility] Name: Dawood Velez Age: 65 yrs Sex: Male : 1950 Arrival Date: 07/21/2016 Time: 19:00 Bed I5 / M5 Private MD: Sherine Disposition: 07/21/16 21:43 Discharged to Home/Self Care. Impression: Calculus of ureter - WITH HYDRONEPHROSIS, 4 MM, RIGHT. - Condition is Stable. - Discharge Instructions: Kidney Stones, Ureteral Colic. - Prescriptions for Ibuprofen 600 mg Oral Tablet - take 1 tablet by ORAL route every 6 hours As needed take with food; 30 tablet. Hillman 5- 325 mg Oral Tablet - take 1 tablet by ORAL route every 6 hours As needed MDD: 4 tabs; 20 tablet. Flomax 0.4 mg Oral Capsule, Sust. Release 24 hr - take 1 capsule by ORAL route once daily 1/2 hour following the same meal each day; 30 capsule. ZOFRAN ODT 4 mg - dissolve 1 tablet by ORAL route 4 times per day As needed do not chew, do not swallow whole; 10 tablet. - Medication Reconciliation, Local Pharmacy Hours form. - Follow up: Josias Varela; When: 1 week; Reason: Recheck today's complaints, Continuance of care. Follow up: Emergency Department; When: As needed; Reason: Worsening of conditions. - Problem is new. - Symptoms have improved. - Notes: PLEASE USE MEDICATIONS INSTRUCTED, FOLLOW UP WITH DR VARELA IN 1 WEEK, RETURN TO THE ER IF THE SYMPTOMS WORSEN OR BECOME CONCERNING Historical: - Allergies: No known drug Allergies; - Home Meds: 1. Triamterene-Hydrochlorothiazid Oral 2. aspirin 81 mg Oral cpDR - PMHx: Hypertension; Kidney stones; - PSHx: none; basket procedure stone removal; - Social history: Smoking status: Patient states was never smoker of tobacco. No barriers to communication noted, The patient speaks fluent Japanese, Speaks appropriately for age. - Family history: Not pertinent. - : The pt / caregiver states he / she is not on anticoagulants. Home medication list is obtained from the patient. - Exposure Risk Screening:: None identified. Vital Signs: 07/21 19:01 BP 154 / 93; Pulse 70; Resp 18; Temp 96.9(O); Pulse Ox 97% ; Weight 99.79 kg / 220 lbs; cmb Height 5 ft. 10 in. (177.80 cm); Pain 10/10; 20:20 Pain 4/10; ead 21:44 BP 134 / 82; Pulse 69; Resp 18; Temp 97.3; Pulse Ox 96% ; Pain 0/10; ajs 19:01 Body Mass Index 31.57 (99.79 kg, 177.80 cm) cmb MDM: 19:52 Undress patient appropriately for examination ordered. ck7 19:52 IV Saline Lock ordered. ck7 19:52 ketorolac 30 mg IVP once ordered. ck7 19:52 Ondansetron 4 mg IVP once ordered. ck7 19:54 Amylase Ordered. EDMS 19:54 Basic Metabolic Profile Ordered. EDMS 19:54 CBC with Diff Ordered. EDMS 19:54 Lipase Ordered. EDMS 19:54 Liver Profile Ordered. EDMS 19:54 Urinalysis Ordered. EDMS 19:54 Urine Culture Ordered. EDMS 19:54 NOTHING BY MOUTH+DIET ordered. EDMS 19:54 CT ABD & PELVIS: No Contrast Ordered. EDMS 20:42 Basic Metabolic Profile Reviewed. ck7 20:42 CBC with Diff Reviewed. ck7 20:42 Liver Profile Reviewed. ck7 20:42 Urinalysis Reviewed. ck7 20:42 Amylase Reviewed. ck7 20:42 Lipase Reviewed. ck7 21:03 Financial registration complete. ks16 21:33 CT ABD & PELVIS: No Contrast Reviewed. ck7 21:39 Physician consultation: Dr. Josias Varela was contacted at 21:38, PT IS PRIVATE PT OF ck7 DR VARELA, CALLED DR VARELA D/T HIGH BUN, ADVISED OF PRESENTATION, PHYSICAL EXAM, LABS AND IMAGAING. PT TO BE PLACED ON ZOFRAN, NORCO, MOTRIN AND FLOMAX, INCREASE FLUIDS AT HOME, STRAIN URINE MUCH POSSIBLE, FOLLOW UP WITH DR VARELA IN NEXT 7-14 DAYS, RETURN TO THE ER IF THE SYMPTOMS WORSEN OR BECOME CONCERNING. 21:42 Dispense Urine Strainer ordered. ck7 21:42 Tamsulosin Extended Release 24 hour Capsule 0.4 mg PO once ordered. ck7 21:42 HYDROcodone-acetaminophen 4 pack- 5 mg-325 mg 1 packets PO Per package directions; ck7 Dispense with patient. 1 po q4h prn for pain ordered. 21:42 Ondansetron ODT Oral Disintegrating Tablet 4 mg PO once; PLEASE DISPENSE TO GO HOME ck7 WITH ordered. 23:02 [facility] Payment Agreement was scanned into [employer] and attached to record. ks07/22 12:00 T-Sheet-- Draft Copy was scanned into [employer] and attached to record. gb Administered Medications: 07/21 20:03 Drug: ketorolac 30 mg [ketorolac 30 mg/mL (1 mL) injection solution (1 mL)] Route: IVP; dsf Site: left antecubital; 20:20 Follow up: Pain 4/10 Adult; Response: No Adverse Reaction; Pain is decreased ead 20:03 Drug: Ondansetron 4 mg [ondansetron HCl 2 mg/mL intravenous solution (2 mL)] Route: dsf IVP; Site: left antecubital; 20:21 Follow up: Response: Nausea is resolved; No Adverse Reaction ead 22:01 Drug: Tamsulosin 0.4 mg [tamsulosin 0.4 mg capsule (1 caps)] Route: PO; ead 22:01 Drug: HYDROcodone-acetaminophen 4 pack- 1 packets [hydrocodone 5 mg-acetaminophen 325 ead mg tablet (1 tabs)] {Co-Signature: dsf (Trinh Reynolds RN).} {Note: for take home use.} Route: PO; 22:01 Drug: Ondansetron ODT 4 mg [ondansetron 4 mg disintegrating tablet (1 tabs)] {Note: for ead take home use.} Route: PO; Signatures: Dispatcher [employer] EDTalib Garcia RN RN cz Barnhardt, Gloria, Reg Reg gb Trinh Reynolds RN RN dsf Kali Abarca, RPA-C RPA-Cck7 Chetna Park, Reg Reg Teri Rodriguez RN, RN The chart was reviewed and I authenticate all verbal orders and agree with the evaluation and treatment provided.Attachments: 23:02 [facility] Payment Agreement [email or web address] 07/22 12:00 T-Sheet-- Draft Copy gb Chart Complete MTDD
--- NOTE | 2016-07-23 23:04 | EDDOCDS ---
Physician Documentation [facility] Name: Dawood Velez Age: 65 yrs Sex: Male : 1950 Arrival Date: 07/21/2016 Time: 19:00 Bed I5 / M5 Private MD: Sherine Disposition: 07/21/16 21:43 Discharged to Home/Self Care. Impression: Calculus of ureter - WITH HYDRONEPHROSIS, 4 MM, RIGHT. - Condition is Stable. - Discharge Instructions: Kidney Stones, Ureteral Colic. - Prescriptions for Ibuprofen 600 mg Oral Tablet - take 1 tablet by ORAL route every 6 hours As needed take with food; 30 tablet. [place] 5- 325 mg Oral Tablet - take 1 tablet by ORAL route every 6 hours As needed MDD: 4 tabs; 20 tablet. Flomax 0.4 mg Oral Capsule, Sust. Release 24 hr - take 1 capsule by ORAL route once daily 1/2 hour following the same meal each day; 30 capsule. ZOFRAN ODT 4 mg - dissolve 1 tablet by ORAL route 4 times per day As needed do not chew, do not swallow whole; 10 tablet. - Medication Reconciliation, Local Pharmacy Hours form. - Follow up: Josias Varela; When: 1 week; Reason: Recheck today's complaints, Continuance of care. Follow up: Emergency Department; When: As needed; Reason: Worsening of conditions. - Problem is new. - Symptoms have improved. - Notes: PLEASE USE MEDICATIONS INSTRUCTED, FOLLOW UP WITH DR VARELA IN 1 WEEK, RETURN TO THE ER IF THE SYMPTOMS WORSEN OR BECOME CONCERNING Historical: - Allergies: No known drug Allergies; - Home Meds: 1. Triamterene-Hydrochlorothiazid Oral 2. aspirin 81 mg Oral cpDR - PMHx: Hypertension; Kidney stones; - PSHx: none; basket procedure stone removal; - Social history: Smoking status: Patient states was never smoker of tobacco. No barriers to communication noted, The patient speaks fluent Mongolian, Speaks appropriately for age. - Family history: Not pertinent. - : The pt / caregiver states he / she is not on anticoagulants. Home medication list is obtained from the patient. - Exposure Risk Screening:: None identified. Vital Signs: 07/21 19:01 BP 154 / 93; Pulse 70; Resp 18; Temp 96.9(O); Pulse Ox 97% ; Weight 99.79 kg / 220 lbs; cmb Height 5 ft. 10 in. (177.80 cm); Pain 10/10; 20:20 Pain 4/10; ead 21:44 BP 134 / 82; Pulse 69; Resp 18; Temp 97.3; Pulse Ox 96% ; Pain 0/10; ajs 19:01 Body Mass Index 31.57 (99.79 kg, 177.80 cm) cmb MDM: 19:52 Undress patient appropriately for examination ordered. ck7 19:52 IV Saline Lock ordered. ck7 19:52 ketorolac 30 mg IVP once ordered. ck7 19:52 Ondansetron 4 mg IVP once ordered. ck7 19:54 Amylase Ordered. EDMS 19:54 Basic Metabolic Profile Ordered. EDMS 19:54 CBC with Diff Ordered. EDMS 19:54 Lipase Ordered. EDMS 19:54 Liver Profile Ordered. EDMS 19:54 Urinalysis Ordered. EDMS 19:54 Urine Culture Ordered. EDMS 19:54 NOTHING BY MOUTH+DIET ordered. EDMS 19:54 CT ABD & PELVIS: No Contrast Ordered. EDMS 20:42 Basic Metabolic Profile Reviewed. ck7 20:42 CBC with Diff Reviewed. ck7 20:42 Liver Profile Reviewed. ck7 20:42 Urinalysis Reviewed. ck7 20:42 Amylase Reviewed. ck7 20:42 Lipase Reviewed. ck7 21:03 Financial registration complete. ks16 21:33 CT ABD & PELVIS: No Contrast Reviewed. ck7 21:39 Physician consultation: Dr. Josias Varela was contacted at 21:38, PT IS PRIVATE PT OF ck7 DR VARELA, CALLED DR VARELA D/T HIGH BUN, ADVISED OF PRESENTATION, PHYSICAL EXAM, LABS AND IMAGAING. PT TO BE PLACED ON ZOFRAN, NORCO, MOTRIN AND FLOMAX, INCREASE FLUIDS AT HOME, STRAIN URINE MUCH POSSIBLE, FOLLOW UP WITH DR VARELA IN NEXT 7-14 DAYS, RETURN TO THE ER IF THE SYMPTOMS WORSEN OR BECOME CONCERNING. 21:42 Dispense Urine Strainer ordered. ck7 21:42 Tamsulosin Extended Release 24 hour Capsule 0.4 mg PO once ordered. ck7 21:42 HYDROcodone-acetaminophen 4 pack- 5 mg-325 mg 1 packets PO Per package directions; ck7 Dispense with patient. 1 po q4h prn for pain ordered. 21:42 Ondansetron ODT Oral Disintegrating Tablet 4 mg PO once; PLEASE DISPENSE TO GO HOME ck7 WITH ordered. 23:02 [facility] Payment Agreement was scanned into [employer] and attached to record. ks07/22 12:00 T-Sheet-- Draft Copy was scanned into [employer] and attached to record. gb Administered Medications: 07/21 20:03 Drug: ketorolac 30 mg [ketorolac 30 mg/mL (1 mL) injection solution (1 mL)] Route: IVP; dsf Site: left antecubital; 20:20 Follow up: Pain 4/10 Adult; Response: No Adverse Reaction; Pain is decreased ead 20:03 Drug: Ondansetron 4 mg [ondansetron HCl 2 mg/mL intravenous solution (2 mL)] Route: dsf IVP; Site: left antecubital; 20:21 Follow up: Response: Nausea is resolved; No Adverse Reaction ead 22:01 Drug: Tamsulosin 0.4 mg [tamsulosin 0.4 mg capsule (1 caps)] Route: PO; ead 22:01 Drug: HYDROcodone-acetaminophen 4 pack- 1 packets [hydrocodone 5 mg-acetaminophen 325 ead mg tablet (1 tabs)] {Co-Signature: dsf (Trinh Reynolds RN).} {Note: for take home use.} Route: PO; 22:01 Drug: Ondansetron ODT 4 mg [ondansetron 4 mg disintegrating tablet (1 tabs)] {Note: for ead take home use.} Route: PO; Signatures: Dispatcher [employer] EDTalib Garcia RN RN cz Barnhardt, Gloria, Reg Reg gb Trinh Reynolds RN RN dsf Kali Abarca, RPA-C RPA-Cck7 [place], Reg Reg Teri Rodriguez RN, RN The chart was reviewed and I authenticate all verbal orders and agree with the evaluation and treatment provided.Attachments: 23:02 [facility] Payment Agreement [email or web address] 07/22 12:00 T-Sheet-- Draft Copy gb Chart Complete MTDD
== END 2016-07-21 22:03 | disposition home or self-care (01) ==
LOC: M ED 19:00
DX: N20.0 Calculus of kidney (principal); I10 Essential (primary) hypertension; Z79.82 Long term (current) use of aspirin; Z79.899 Other long term (current) drug therapy; Z87.442 Personal history of urinary calculi
CPT/HCPCS: 36415; 74176; 80048; 80076; 81001; 82150; 83690; 85025; 87086; 96374; 96375; 99284; J1885; J2405

== ENCOUNTER → 2016-07-21 | Outpatient (REF) | payer OTHER | LOC: M LAB REF 13:37 | PROVIDERS: ATTEND Family Medicine | DX: R73.01 Impaired fasting glucose (principal) ==

== ENCOUNTER → 2016-08-27 | Outpatient (CLI) | payer BC, OTHER ==
--- NOTE | 2016-08-28 02:08 | REP ---
Clinical: Nephroureterolithiasis. Comparison: 05/10/2014. Findings: Single supine view of the abdomen demonstrates degenerative changes to the lumbosacral spine and bilateral hips. Bowel gas pattern is nonspecific. 4 mm calcification overlying the right psoas muscle inferior to the L3 transverse process may represent mid ureteral calcification. Further evaluation of the urinary tract system is limited due to overlying bowel gas. Correlation is recommended. Phleboliths noted in the left germán pelvis. Impression: Cannot exclude 4 mm right mid ureteral calculus. Signed by Brett Koch MD 08/28/2016 01:59 A
== END ==
LOC: M SMT 14:34
PROVIDERS: ATTEND Urology
DX: N20.1 Calculus of ureter (principal)

== ENCOUNTER → 2016-09-14 | Outpatient (CLI) | payer BC, OTHER ==
[~2016-09-14] MED LIST: ASPI1TAB PO; FLOM5CAP PO; TRIA37.53 PO
[2016-09-14 09:48] LABS: MEAN CORPUSCULAR HEMOGLOBIN 33.7 pg (27.0-33.0); MEAN CORPUSCULAR HGB CONC 35.4 g/dl (32.0-36.5); MEAN CORPUSCULAR VOLUME 95.2 fl (80.0-96.0); RED CELL DISTRIBUTION WIDTH 12.4 % (11.5-14.5); WHITE BLOOD COUNT 4.9 K/mm3 (4.0-10.0)
[2016-09-14 09:54] LABS: INR 0.92
[2016-09-14 10:03] LABS: ANION GAP 10 MEQ/L (8-16); BLOOD UREA NITROGEN 18 MG/DL (7-18); CALCIUM LEVEL 9.2 MG/DL (8.8-10.2); CARBON DIOXIDE LEVEL 29 MEQ/L (21-32); CHLORIDE LEVEL 103 MEQ/L (98-107); CREATININE FOR GFR 1.03 MG/DL (0.70-1.30); GLOMERULAR FILTRATION RATE > 60.0 (>49); GLUCOSE, FASTING 119 MG/DL (80-110); POTASSIUM SERUM 4.2 MEQ/L (3.5-5.1); SODIUM LEVEL 142 MEQ/L (136-145)
== END ==
LOC: M WUC 08:12
PROVIDERS: ATTEND Urology
DX: Z01.818 Encounter for other preprocedural examination (principal); N20.1 Calculus of ureter

== ENCOUNTER → 2016-09-16 | Outpatient (CLI) | payer BC, OTHER ==
--- NOTE | 2016-09-16 15:05 | REP ---
Chest two views HISTORY: Preop Comparison: None The lungs are clear. The heart is normal in size. The pulmonary vasculature is normal in appearance. The bony structure is intact. IMPRESSION: No acute disease. Signed by Serafin Linares MD 09/16/2016 02:57 P
== END ==
LOC: M SMT 13:50
PROVIDERS: ATTEND Physician Assistant
DX: Z01.818 Encounter for other preprocedural examination (principal)

== ENCOUNTER → 2016-09-21 | Outpatient (REF) | payer BC, OTHER | LOC: M SMT 09:23 | PROVIDERS: ATTEND Urology | DX: Z01.818 Encounter for other preprocedural examination (principal); N20.1 Calculus of ureter ==

== ENCOUNTER → 2016-09-28 | Day surgery (SDC) | payer BC, OTHER ==
[~2016-09-28] VITALS: Ht 177.8 cm; Wt 101.2 kg
[~2016-09-28] MED LIST changes: +CONRAY-60 60% 50ML VIAL (Q9961) As Ordered ONE; +LIDOCAINE 2% INJ 100 MG/5 ML SDV (FOR ANES.) As Ordered ONE; +LR 1,000 ML IV SCH; +METOCLOPRAMIDE INJ 10MG/2ML VIAL (J2765) IV PRN; +MIDAZOLAM INJ 2 MG/2 ML VIAL (J2250) As Ordered ONE; +ONDANSETRON 4MG/2ML VIAL (J2405) As Ordered ONE; +ONDANSETRON 4MG/2ML VIAL (J2405) IV PRN; +PERCOCET 5MG/325MG TAB PO PRN; +PROPOFOL 200 MG/20 ML VIAL As Ordered ONE; +dexameTHASONE 4 MG/ML 1ML VIAL (J1100) As Ordered ONE; +fentaNYL 100 MCG/2 ML INJECTION (J3010) As Ordered ONE; +fentaNYL 100 MCG/2 ML INJECTION (J3010) IV PRN; +oxyBUTYnin 5 MG TAB PO PRN
[2016-09-28] MEDS: LR 1,000 ML IV SCH ×2 (08:44→11:34)
--- NOTE | 2016-09-28 12:49 | REP ---
Retrograde pyelogram: Four views. History: Nephrolithiasis. 40 seconds of fluoroscopy time is reported. Findings: A sequence of four fluoroscopically obtained last image hold spot radiographs of the abdomen document ureteral cannulation, contrast injection, and double pigtailed stenting. No laterality markers are noted in place. Signed by Pacheco Laguna MD 09/28/2016 07:16 P
[2016-09-28 13:35] VITALS: BP 148/90
--- NOTE | 2016-09-29 10:00 | RO ---
DATE OF PROCEDURE: 09/28/2016 PREPROCEDURE DIAGNOSIS: Right ureteral stone. POSTPROCEDURE DIAGNOSIS: Right ureteral stone. PROCEDURE: Cystoscopy, right ureteroscopy and basket extraction of stones, right retrograde pyelogram with intraoperative interpretation of images, right ureteral stent placement. SURGEON: Josias Lynch MD [employer] ARCHITECT: None. ANESTHESIA: General. OPERATIVE INDICATIONS: This is a 65-year-old male who was found to have an approximately 5 to 6 mm distal right ureteral stone two months ago. He was given a trial of passage and was not able to pass the stone on his own. It was recommended that he be brought to the operating room today for the above listed procedure. DESCRIPTION OF PROCEDURE: The patient was brought to the operating room and general anesthesia was induced. Prophylactic antibiotics were infused. He was then placed in the dorsal lithotomy position and prepped and draped in the usual sterile fashion. A rigid cystoscope was then inserted into the urethral meatus and advanced into the bladder. Once this was in the bladder, a wire was advanced up the right collecting system. At this point, a short, semirigid ureteroscope was advanced up the right ureter and within the distal ureter a 5 mm stone was seen impacted. I was able to advance the basket past the stone and while doing so the stone appeared to fragment into about two to three pieces. I then utilized the stone basket to remove all the fragments in the ureter. Of note, within the distal ureter where the stone was impacted, there was a moderate amount of scarring. A retrograde pyelogram was then performed and was notable for mild to moderate right hydroureteronephrosis down to the distal ureter. At this point, the short semirigid ureteroscope was removed and the previously placed wire was utilized to advance a #6-Burkin[place] x 22-32 cm JJ ureteral stent up into the right collecting system. The wire was then removed, and there were adequate curls of the stent in the right renal pelvis and in the bladder. The bladder was then emptied of all fluid, and this marked the conclusion of the procedure. The patient was then taken out of the dorsal lithotomy position, awakened from anesthesia, and transported to the recovery room in stable condition. ESTIMATED BLOOD LOSS: 0 mL. COMPLICATIONS: None. SPECIMENS: Kidney stone fragments. PLAN: The patient will keep the stent in place for at least 3 to 4 weeks given the amount of scarring in the distal ureter. I will then remove the stent in the office. GABBY
== END | disposition home or self-care (01) ==
LOC: M SDC 08:05
PROVIDERS: ATTEND Urology
DX: N20.1 Calculus of ureter (principal); N20.0 Calculus of kidney; I10 Essential (primary) hypertension; E78.5 Hyperlipidemia, unspecified; Z79.82 Long term (current) use of aspirin; Z79.899 Other long term (current) drug therapy; Z85.828 Personal history of other malignant neoplasm of skin
CPT/HCPCS: 52332; 52352; 74420; 82360; 88300; C2617; J0690; J1100; J2250; J2405; J3010; Q9961

== ENCOUNTER 2017-02-13 11:33 | Observation (INO) | payer MEDICARE, BC, OTHER ==
[~2017-02-13] VITALS: Ht 177.8 cm; Wt 101.5 kg
[~2017-02-13 11:33] MED LIST changes: -CONRAY-60 60% 50ML VIAL (Q9961) As Ordered ONE; -LIDOCAINE 2% INJ 100 MG/5 ML SDV (FOR ANES.) As Ordered ONE; -LR 1,000 ML IV SCH; -METOCLOPRAMIDE INJ 10MG/2ML VIAL (J2765) IV PRN; -MIDAZOLAM INJ 2 MG/2 ML VIAL (J2250) As Ordered ONE; -ONDANSETRON 4MG/2ML VIAL (J2405) As Ordered ONE; -ONDANSETRON 4MG/2ML VIAL (J2405) IV PRN; -PERCOCET 5MG/325MG TAB PO PRN; -PROPOFOL 200 MG/20 ML VIAL As Ordered ONE; -dexameTHASONE 4 MG/ML 1ML VIAL (J1100) As Ordered ONE; -fentaNYL 100 MCG/2 ML INJECTION (J3010) As Ordered ONE; -fentaNYL 100 MCG/2 ML INJECTION (J3010) IV PRN; -oxyBUTYnin 5 MG TAB PO PRN
[2017-02-13] MEDS ORDERED: CEPH500C PO (11:49)
[2017-02-13] MEDS ORDERED: LOSA100T36 PO (11:49)
[2017-02-13 12:45] LABS: EOS # 0.1 K/mm3 (0.0-0.50); EOS % 1.2 % (0.0-3.0); LARGE UNSTAINED CELL # 0.1 K/mm3 (0.0-0.4); LARGE UNSTAINED CELL % 1.7 % (0.0-4.0); LYMPH # 1.3 K/mm3 (1.5-4.5); LYMPH % 23.8 % (24.0-44.0); MEAN CORPUSCULAR HEMOGLOBIN 33.8 pg (27.0-33.0); MEAN CORPUSCULAR HGB CONC 35.8 g/dl (32.0-36.5); MEAN CORPUSCULAR VOLUME 94.3 fl (80.0-96.0); MONO # 0.3 K/mm3 (0.0-0.8); MONO % 5.3 % (0.0-5.0); NEUTROPHILS # 3.5 K/mm3 (1.8-7.7); PLATELET COUNT, AUTOMATED 178 k/mm3 (150-450); RED CELL DISTRIBUTION WIDTH 12.6 % (11.5-14.5); WHITE BLOOD COUNT 5.2 K/mm3 (4.0-10.0)
[2017-02-13 13:08] LABS: ALBUMIN/GLOBULIN RATIO 1.33 (1.00-1.93); ALKALINE PHOSPHATASE 69 U/L (45-117); ALT/SGPT 44 U/L (12-78); ANION GAP 9 MEQ/L (8-16); AST/SGOT 31 U/L (15-37); BILIRUBIN,DIRECT 0.2 MG/DL (0.0-0.2); BILIRUBIN,TOTAL 0.7 MG/DL (0.2-1.0); BLOOD UREA NITROGEN 18 MG/DL (7-18); CALCIUM LEVEL 8.6 MG/DL (8.8-10.2); CARBON DIOXIDE LEVEL 24 MEQ/L (21-32); CHLORIDE LEVEL 105 MEQ/L (98-107); CREATININE FOR GFR 0.86 MG/DL (0.70-1.30); GLOMERULAR FILTRATION RATE > 60.0 (>49); GLUCOSE, FASTING 91 MG/DL (80-110); SODIUM LEVEL 138 MEQ/L (136-145)
[2017-02-13] MEDS ORDERED: ACET50TAOT PO (13:54)
--- NOTE | 2017-02-13 14:05 | REP ---
REASON: Altered mental status. COMPARISON: 09/16/2016 FINDINGS: The technique utilized in obtaining the radiograph has magnified the cardiac silhouette and accentuated the interstitial markings. The superior mediastinal structures are midline. The cardiac silhouette is unremarkable in size, shape, and position. The diaphragmatic surfaces of the lungs are regular, and the costophrenic angles are clear. The pulmonary moore are clear. The imaged osseous structures are intact. IMPRESSION: There is no acute cardiopulmonary disease. Signed by Pop Barker DO 02/13/2017 04:41 P
--- NOTE | 2017-02-13 14:12 | REP ---
REASON: Altered mental status: PRIORS: None. There is a minimal chronic left frontal subdural hygroma. There is no evidence of an acute intracranial hemorrhagic or nonhemorrhagic event. The ventricle and sulci are within normal limits. The deep cerebral white matter is within normal limits for the patient's age. There is no posterior fossa abnormality. There is no skull fracture. The imaged paranasal sinuses and mastoid air cells are clear. IMPRESSION: Chronic changes. Signed by Pop Barker DO 02/13/2017 04:41 P
--- NOTE | 2017-02-13 15:31 | HPEPDOC ---
Medical History and Physical Date of Admission Feb 13, 2017 at 14:54 History and Physical PRIMARY CARE PROVIDER: ATTENDING: Rocky Garrett MD CHIEF COMPLAINT: Memory loss HISTORY OF PRESENT ILLNESS: This is a 66-year-old male past medical history of hypertension, hyperlipidemia , skin cancer status post resection who presents complaining of memory loss. 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 At 10:15 AM, The patient then called her son and asked him why he is at the other field. The patient was then confused as to where he was. The patient was brought to the emergency department with no focal deficits. He did not have any slurred speech/facial droop. The patient was evaluated by neuro telemetry, with thoughts that the patient likely has transient global amnesia, and unlikely a CVA. The patient's at bedside states that his memory is slowly improving since he was brought to the ER. Patient denies headache/vision changes/focal weakness. Patient denies chest pain/stress of breath/palpitations. No nausea/vomiting/ abdominal pain. PAST MEDICAL HISTORY: As per HPI PAST SURGICAL HISTORY: Surgical resection of skin cancer SOCIAL HISTORY: Denies alcohol, tobacco, illicit drug use. Lives with . Flores. FAMILY HISTORY: Non contributory ALLERGIES: Please see below. REVIEW OF SYSTEMS: HEENT: Denies sore throat/headache CARDIOVASCULAR: Denies chest pain/palpitations RESPIRATORY: Denies shortness of breath/cough GASTROINTESTINAL: denies nausea/vomiting GENITOURINARY: Denies dysuria/urinary urgency. MUSCULOSKELETAL: Denies myalgias/arthralgias NEUROLOGICAL: Denies any focal weakness HOME MEDICATIONS: Please see below. PHYSICAL EXAMINATION: Vitals: (see below) General: No acute distress, laying comfortably in bed. HEENT: Moist mucous membranes. Right surgical scar adjacent to the nose with sutures intact from a recent resection of skin cancer. Neck: No JVD or lymphadenopathy Cardiac: RRR, No murmurs Pulm: Clear to auscultation b/l. No wheezing, rhonchi Abd: NT/ND + BS Ext: No edema or cyanosis Neuro: Strength 5/5 BUE and BLE. CN 2-12 intact. F to N intact Negative Babinki. Alert and oriented 3. Has confusion as to what happened earlier in the day. LABORATORY DATA: See below. IMAGING: CT of the head on 02/13/17 There is a minimal chronic left frontal subdural hygroma. There is no evidence of an acute intracranial hemorrhagic or nonhemorrhagic event. The ventricle and sulci are within normal limits. The deep cerebral white matter is within normal limits for the patient's age. There is no posterior fossa abnormality. There is no skull fracture. The imaged paranasal sinuses and mastoid air cells are clear. IMPRESSION: Chronic changes. CXR 02/13/17 IMPRESSION: There is no acute cardiopulmonary disease. MICROBIOLOGY: Please see below. ASSESSMENT/PLAN: 1. Transient global amnesia- likely the cause of the patient's confusion. Memory slowly improving. No focal weakness on exam. CT of the head negative for acute stroke. Will follow with MRI of the brain/MRA of the head. Carotid ultrasound. Neuro checks. PT/OT/speech therapy. We'll monitor on telemetry. Consider neurology consultation if no improvement by tomorrow morning. 2. History of hypertension- continue meds 3. History of skin cancer status post resection- will need outpatient follow-up especially to have the sutures removed. 4. History of hyperlipidemia DVT prophylaxis- enoxaparin Patient will be followed by Dr. Britta Gill starting 02/14/17 at 7 AM. Vital Signs Vital Signs Date Time Temp Pulse Resp B/P (MAP) Pulse Ox O2 Delivery O2 Flow Rate FiO2 02/13/17 14:48 60 02/13/17 13:47 02/13/17 13:33 95 02/13/17 11:44 97.9 18 Room Air Laboratory Data Labs 24H Laboratory Tests 2 02/13/17 12:03: White Blood Count 5.2, Red Blood Count 4.91, Hemoglobin 16.6, Hematocrit 46.3, Mean Corpuscular Volume 94.3, Mean Corpuscular Hemoglobin 33.8H, Mean Corpuscular Hemoglobin Concent 35.8, Red Cell Distribution Width 12.6, Platelet Count 178, Neutrophils (%) (Auto) 67.0H, Lymphocytes (%) (Auto) 23.8L, Monocytes (%) (Auto) 5.3H, Eosinophils (%) (Auto) 1.2, Basophils (%) (Auto) 1.0 , Neutrophils # (Auto) 3.5, Lymphocytes # (Auto) 1.3L, Monocytes # (Auto) 0.3, Eosinophils # (Auto) 0.1, Basophils # (Auto) 0.0, Large Unclassified Cells % 1.7 , Large Unclassified Cells # 0.1, Anion Gap 9, Glomerular Filtration Rate > 60.0 , Lactic Acid Level 0.9, Calcium Level 8.6L, Aspartate Amino Transf (AST/SGOT) 31, Alanine Aminotransferase (ALT/SGPT) 44, Alkaline Phosphatase 69, Total Bilirubin 0.7, Direct Bilirubin 0.2, Ammonia 32, Total Creatine Kinase 122, Creatine Kinase MB 2.0, Creatine Kinase MB Relative Index 1.63, Troponin I < 0.02, Total Protein 7.0, Albumin 4.0, Albumin/Globulin Ratio 1.33, Thyroid Stimulating Hormone (TSH) 1.480 02/13/17 12:56: Bedside Glucose (Misc Panel) 91 02/13/17 13:38: Prothrombin Time 13.3, Prothromb Time International Ratio 1.00, Activated Partial Thromboplast Time 34.5 02/13/17 15:05: CBC/BMP Laboratory Tests 02/13/17 12:03 Red Blood Count 4.91, Mean Corpuscular Volume 94.3, Mean Corpuscular Hemoglobin 33.8 H, Mean Corpuscular Hemoglobin Concent 35.8, Red Cell Distribution Width 12.6, Neutrophils (%) (Auto) 67.0 H, Lymphocytes (%) (Auto) 23.8 L, Monocytes (% ) (Auto) 5.3 H, Eosinophils (%) (Auto) 1.2, Basophils (%) (Auto) 1.0, Neutrophils # (Auto) 3.5, Lymphocytes # (Auto) 1.3 L, Monocytes # (Auto) 0.3, Eosinophils # (Auto) 0.1, Basophils # (Auto) 0.0 Home Medications Scheduled Aspirin (Aspirin 81) 81 Mg Tab, 81 MG PO DAILY Losartan Potassium (Losartan Potassium) 100 Mg Tab, 100 MG PO DAILY Scheduled PRN Acetaminophen (Acetaminophen) 500 Mg Tab, 500 MG PO for PAIN Allergies Coded Allergies: No Known Allergies (Unverified , 05/03/14) ROCKY GARRETT MD Feb 13, 2017 15:31
[2017-02-13 16:10] VITALS: BP 170/98
[2017-02-13] MEDS: CEPHALEXIN 500 MG CAP PO SCH ×2 (17:52→20:27)
[2017-02-13 19:58] VITALS: BP 152/93
[2017-02-13] MEDS ORDERED: ACETAMINOPHEN TAB 650MG DOSE (2X325MG) PO PRN (20:15)
--- NOTE | 2017-02-13 22:20 | REPUSA ---
MRI of the brain. Clinical history: slurred speech. Technique: Multiecho multiplanar MRI images of the brain were obtained without administration of cont rast. Diffusion weighted images with ADC mapping was also obtained. Findings: The ventricles and sulci are symmetric bilaterally. The brain parenchyma demonstrates uniform and nor mal signal on all sequences. There is no midline shift, mass effect, or extra-axial fluid collection. The midline intracranial structures do not demonstrate any gross abnormalities. The cervical cranial junction is intact. The orbits are unremarkable. The visualized paranasal sinuses and mastoid air ce lls are clear. The osseous structures and superficial soft tissues are unremarkable. The vascular str uctures demonstrate appropriate flow voids. Impression: Normal MRI of the Brain.
--- NOTE | 2017-02-13 22:30 | REPUSA ---
MRA of the brain. Clinical history: slurred speech. Technique: [id number] MRA images of the brain were obtained without administration of contrast. 3 -D MIP images were also obtained. Findings: The vascular structures extending from the distal carotid and vertebrobasilar arterial syst ems, through the [place], demonstrate normal caliber and contour. There is no evidence of an eurysm, stenosis, or thrombosis. Impression: Unremarkable MRA examination of the brain.
[2017-02-14] VITALS (7 sets, daily range): BP systolic 118–150; BP diastolic 71–85
--- NOTE | 2017-02-14 02:43 | ECGEPIP ---
Stationary ECG Study [facility] - ED Test Date: 2017-02-13 Pat Name: KYLE EPPS Department: Room: - Gender: M [employer]: CORRIE : 1950 Requested By: Muna Rosado Order Number: [id number] Reading MD: Vincent Johnson Measurements Intervals [place] Rate: 60 P: 12 KS: 184 QRS: -1 QRSD: 99 T: 25 QT: 375 QTc: 377 Interpretive Statements SINUS RHYTHM Electronically Signed On 02-14-2017 2:43:28 EDT by Vincent Johnson
[2017-02-14 07:18] LABS: MEAN CORPUSCULAR HEMOGLOBIN 33.8 pg (27.0-33.0); MEAN CORPUSCULAR HGB CONC 35.4 g/dl (32.0-36.5); MEAN CORPUSCULAR VOLUME 95.6 fl (80.0-96.0); RED CELL DISTRIBUTION WIDTH 12.7 % (11.5-14.5); WHITE BLOOD COUNT 5.6 K/mm3 (4.0-10.0)
--- NOTE | 2017-02-14 07:18 | REP ---
REASON: TIA. There is echogenic material seen in the carotid arterial blank, which is mild to moderate, some of which casts an acoustic shadow. RIGHT LEFT CCA systolic 70.9cm/s 90.7 cm/s CCA diastolic 23.0 cm/s 17.9 cm/s ICA systolic 65.1 cm/s 71.8 cm/s ICA diastolic 23.2 cm/s 25.2 cm/s ICA/CCA ratio 0.92 0.79 Spectral waveform analysis shows no significant spectral broadening. There is antegrade flow seen in the left vertebral artery. The right vertebral artery could not be imaged. IMPRESSION: Soft and calcified plaque formation causing less than 50% stenosis in the internal carotid artery bilaterally as per the NASCET consensus criteria. Signed by Pop Barker DO 02/14/2017 09:20 A
[2017-02-14 07:23] LABS: ANION GAP 9 MEQ/L (8-16); BLOOD UREA NITROGEN 20 MG/DL (7-18); CARBON DIOXIDE LEVEL 26 MEQ/L (21-32); CHLORIDE LEVEL 108 MEQ/L (98-107); CHOLESTEROL LEVEL 173 MG/DL (<200); CREATININE FOR GFR 0.95 MG/DL (0.70-1.30); GLOMERULAR FILTRATION RATE > 60.0 (>49); GLUCOSE, FASTING 94 MG/DL (80-110); POTASSIUM SERUM 4.4 MEQ/L (3.5-5.1); SODIUM LEVEL 143 MEQ/L (136-145); TRIGLYCERIDES LEVEL 183 MG/DL (<150)
[2017-02-14] MEDS: LOSARTAN 50 MG TAB PO SCH (08:30)
[2017-02-14] MEDS: ASPIRIN 81 MG ENTERIC TAB PO SCH (08:30)
[2017-02-14] MEDS: CEPHALEXIN 500 MG CAP PO SCH ×4 (08:30→21:09)
--- NOTE | 2017-02-14 11:42 | IPN ---
DATE: 02/14/2017 SUBJECTIVE: At this point, the patient tells me that he is feeling well. He tells me that he is no longer having any difficulties with his memory and he is able to remember most of yesterday other than a 2 hour period. At the present time he denies any paresthesias, lightheadedness, paralysis, chest pain, shortness of breath, fevers, chills, nausea, vomiting or diarrhea. OBJECTIVE: VITAL SIGNS: T-max 99, temperature current 98.2, pulse 52, respiratory rate 18, blood pressure 150/85, oxygen saturation 98% on room air. GENERAL: He is a well built obese, elderly man who appears younger than stated age. He is sitting up in bed. He does not appear to be in any acute distress. He is accompanied by his . HEENT: Cranial nerves II through XII are grossly intact. He has as well healed incision in his ecchymotic region of his right nasal labial fold. Moist mucous membranes. No elevation of CVP. CARDIOVASCULAR EXAM: S1 and S2 regular. RESPIRATORY EXAM: Clear. ABDOMINAL EXAM: Bowel sounds present. It is obese. EXTREMITIES: No clubbing, cyanosis, or edema. Strength was 5/5. LABORATORY STUDIES: WBC 5.6, hemoglobin 15.5, platelet count 169. Chemistry panel: Sodium 143, potassium 4.4, chloride 108, bicarb 26, BUN 20, creatinine 0.9. He had a TSH within normal limits. Multiple sets of cardiac enzymes are negative. INR 1.0. Unremarkable UA. IMAGING: The patient did have an MRI of the brain which was a normal MRI of the brain. He did have MRA of the brain which was also unremarkable. He had a vascular ultrasound that revealed soft and calcified plaque formation causing less than 50% stenosis in the internal carotid artery bilaterally. He also had a chest x-ray that revealed no acute cardiopulmonary disease. A CT scan of the head that revealed chronic changes. ASSESSMENT/PLAN: This is a 66-year-old man with transient global amnesia. PROBLEMS: 1. Transient global amnesia, the etiology of which at the present time remains unclear. He does have a low grade temperature. No evidence of neck stiffness or other symptoms to suggest any encephalitis. There is no seizure activity noted. There has not been any major life stressors. He does not have any history of migraines or any associated headache during the event yesterday. There is no evidence of TIA or CVA. He has been started on a baby aspirin, which this should likely continue and he would benefit from. For the time being we will monitor him on the progressive care unit maintaining neuro checks for an additional 24 hours. I will have him work with physical therapy and occupational therapy as. If all remains well without any escalation of symptoms. We will check an EEG tomorrow and if unremarkable, he can possibly be discharged tomorrow afternoon. 2. 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 Continue with cephalexin. 3. Hypertension. Continue with losartan. 4. Deep vein thrombosis (DVT) prophylaxis. Early ambulation, sequentials and thromboembolic deterrent stockings (TEDS).
[2017-02-15] MEDS ORDERED: SLF 3 ML SYR IV PRN (04:00)
[2017-02-15 04:45] VITALS: BP 127/91
[2017-02-15 04:55] LABS: MEAN CORPUSCULAR HEMOGLOBIN 34.4 pg (27.0-33.0); MEAN CORPUSCULAR HGB CONC 35.9 g/dl (32.0-36.5); RED CELL DISTRIBUTION WIDTH 12.7 % (11.5-14.5); WHITE BLOOD COUNT 5.8 K/mm3 (4.0-10.0)
[2017-02-15 05:13] LABS: ANION GAP 8 MEQ/L (8-16); BLOOD UREA NITROGEN 19 MG/DL (7-18); CALCIUM LEVEL 9.3 MG/DL (8.8-10.2); CARBON DIOXIDE LEVEL 27 MEQ/L (21-32); CHLORIDE LEVEL 108 MEQ/L (98-107); CREATININE FOR GFR 0.99 MG/DL (0.70-1.30); GLOMERULAR FILTRATION RATE > 60.0 (>49); GLUCOSE, FASTING 99 MG/DL (80-110); POTASSIUM SERUM 4.7 MEQ/L (3.5-5.1); SODIUM LEVEL 143 MEQ/L (136-145)
[2017-02-15] MEDS: SLF 3 ML SYR IV SCH ×3 (06:10→21:29)
[2017-02-15 07:51] VITALS: BP 130/82
[2017-02-15] MEDS: LOSARTAN 50 MG TAB PO SCH (08:57)
[2017-02-15] MEDS: ASPIRIN 81 MG ENTERIC TAB PO SCH (08:57)
[2017-02-15] MEDS: CEPHALEXIN 500 MG CAP PO SCH ×4 (08:57→21:29)
[2017-02-15 12:00] VITALS: BP 135/91
--- NOTE | 2017-02-15 12:10 | IPN ---
DATE: 02/15/2017 SUBJECTIVE: The patient tells me that he feels back to baseline. He is not having any difficulties with memory. Currently, he denies lightheadedness, fevers, chills, neck stiffness, chest pain, shortness of breath. OBJECTIVE: VITAL SIGNS: Temperature 96.6, pulse 57, respiratory rate 18, blood pressure 130/82, oxygen saturation 96% on room air. GENERAL: He is a very pleasant, man sitting up in recliner. He is accompanied by his . The patient does not appear to be in any acute distress whatsoever. HEENT: Cranial nerves II through XII are grossly intact. He has as well healed incision and an area of ecchymosis and firmness with erythema of his right nasolabial fold. Sutures are in place. He has moist mucous membranes. No elevation in central venous pressure. CARDIOVASCULAR EXAM: S1 and S2 regular. RESPIRATORY EXAM: Clear. ABDOMINAL EXAM: Bowel sounds present. The abdomen is obese. EXTREMITIES: No clubbing, cyanosis, or edema. Strength was 5/5. NEUROLOGIC: His neurologic exam is nonfocal. LABORATORY STUDIES: WBC 5.8, hemoglobin 15.9, hematocrit 44.3, platelet count 163. Chemistry panel: Sodium 143, potassium 4.7, chloride 108, bicarbonate 27, BUN 19, creatinine 0.9. Respiratory PCR panel is negative. IMAGING: No new imaging. ASSESSMENT/PLAN: This is a 66-year-old man with transient global amnesia. PROBLEMS: 1. Transient global amnesia, the etiology of which appears to be unclear. I have ordered an EEG and we await the results. Should the EEG be negative, as has been his MRI, MRA, and carotid duplex, I suspect that this may be related to stress. 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 There have been no other major life stressors. He does not exhibit any migraine like activities or evidence of encephalitis. I suspect that if the EEG is normal that he can likely be discharged and followup with primary care provider. 2. Squamous cell carcinoma of the face, status post resection. 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 3. Hypertension. Continue with losartan. His blood pressure is controlled. 4. Deep vein thrombosis (DVT) prophylaxis. Early ambulation and sequential compression device (SCD). DISPOSITION: I suspect that the patient can likely be discharged within the next 24 hours provided the EEG is within normal limits.
[2017-02-15 16:00] VITALS: BP 122/82
[2017-02-15 19:37] VITALS: BP 144/86
[2017-02-15 23:51] VITALS: BP 120/80
[2017-02-16 05:05] VITALS: BP_SYST 132; BP_SYST 168; BP_DIAS 88; BP_DIAS 91
[2017-02-16] MEDS: SLF 3 ML SYR IV SCH ×2 (05:16→13:09)
[2017-02-16 05:37] LABS: MEAN CORPUSCULAR HGB CONC 35.1 g/dl (32.0-36.5); RED CELL DISTRIBUTION WIDTH 12.7 % (11.5-14.5); WHITE BLOOD COUNT 6.2 K/mm3 (4.0-10.0)
[2017-02-16 05:55] LABS: ANION GAP 6 MEQ/L (8-16); BLOOD UREA NITROGEN 18 MG/DL (7-18); CALCIUM LEVEL 8.7 MG/DL (8.8-10.2); CARBON DIOXIDE LEVEL 28 MEQ/L (21-32); CHLORIDE LEVEL 110 MEQ/L (98-107); CREATININE FOR GFR 0.95 MG/DL (0.70-1.30); GLOMERULAR FILTRATION RATE > 60.0 (>49); GLUCOSE, FASTING 85 MG/DL (80-110); SODIUM LEVEL 144 MEQ/L (136-145)
[2017-02-16 07:49] VITALS: BP 122/88
[2017-02-16 08:12] VITALS: BP 122/74
[2017-02-16] MEDS: ASPIRIN 81 MG ENTERIC TAB PO SCH (08:12)
[2017-02-16] MEDS: LOSARTAN 50 MG TAB PO SCH (08:12)
[2017-02-16] MEDS: CEPHALEXIN 500 MG CAP PO SCH ×2 (08:12→13:23)
[2017-02-16 11:41] VITALS: BP 136/89
--- NOTE | 2017-02-17 07:36 | EEG ---
DATE OF PROCEDURE: 02/15/2017 REFERRING PHYSICIAN: Britta Gill MD DIAGNOSIS: Transient Global Amenisa EEG NUMBER: [id number]. HISTORY: Patient is a 66-year-old man who was admitted at [facility] due to an episode of memory loss and of altered mental status. This EEG was done to rule out epileptic potential. He is currently taking aspirin, Keflex, losartan, etc. TECHNICAL DESCRIPTION: This digital EEG was recorded by 21 scalp, ear and two EKG electrodes and was reviewed in bipolar and referential montages following reformatting in 10-20 international electrode placement system. INTERPRETATION: The patient was noted to be in awake and drowsy states during this EEG. Resting awake background rhythm consisted of well-formed posterior dominant rhythm with anterior/posterior gradient comprising of 10 Hz alpha activity measuring 15-40 microvolts in amplitude. Anteriorly low voltage and mixed frequency activity was noted. Attenuation of posterior dominant was seen during transition into drowsiness. Stage I and II sleep were reviewed and were symmetric bilaterally. Hyperventilation remained unremarkable. Photic stimulation remained unremarkable. EKG revealed normal sinus rhythm. No focal, lateralizing or epileptiform abnormalities were seen. No clinical or electrographic seizures were recorded. CONCLUSION: This EEG in awake, drowsy states, stage I and II sleep is within normal limits. [facility]
--- NOTE | 2017-02-17 14:48 | DSES ---
DATE OF ADMISSION: 02/13/2017 DATE OF DISCHARGE: 02/16/2017 PRIMARY CARE PROVIDER: Dr. Zaman FINAL DIAGNOSES: 1. Transient global amnesia. 2. Underlying squamous cell carcinoma of the face. 3. Hypertension. 4. History of nephrolithiasis. 5. Dyslipidemia. HISTORY OF PRESENT ILLNESS: This is a 66-year-old male patient with underlying medical history of hypertension, dyslipidemia, squamous cell cancer of the skin, status post resection, presented with complaint of memory loss. The patient is a [place]. The [place], but, as per family, has been driving to a neighbor's field at 10:15 a.m. on the day of admission. The patient's then called the patient's son and the patient was found confused at the neighbor's field, was brought to the emergency room with no focal deficits. Does not have any slurred speech or facial droop. The patient was evaluated by neurology. It was thought that the patient likely had transient global amnesia, unlikely CVA. In the emergency room, the patient's memory slowly improved. Denies any headache, vision change, focal weakness. Denies any chest pain, pressure, discomfort or shortness of breath, palpitations, nausea, vomiting, or abdominal pain. HOSPITAL COURSE: The patient was admitted to the hospital. MRI was done. Respiratory panel was done. MRI of the brain and ultrasound of the carotids has been done, which were all within normal limits. EEG was done and was showing negative for epileptiform activities. The patient's mental status has returned to baseline. Able to ambulate without any problems. Is currently back to baseline and ready for discharge for further care as an outpatient. VITAL SIGNS: Temperature 97.3, pulse 77, respirations 18, blood pressure 136/89, pulse oximetry 96% on room air. GENERAL: The patient is alert and oriented times three. No acute distress. HEENT: Normocephalic, atraumatic. PULMONARY: Bilaterally clear to auscultation. CARDIAC: Regular rate and rhythm. Normal S1, S2. ABDOMEN: Soft and nontender. Positive bowel sounds. EXTREMITIES: No clubbing, cyanosis, or edema. NEUROLOGIC: Cranial nerves II through XII grossly intact. Motor function in bilateral and upper lower extremities symmetrical and 5/5. Sensation to light touch intact. Finger to nose intact. No focal deficits. LABORATORY DATA: WBC 6.2, hemoglobin and hematocrit 15.4/43.9, platelets 163. Chemistry: Sodium 144, potassium 4.0, chloride 110, bicarbonate 28, BUN 18, creatinine 0.95. DISCHARGE MEDICATIONS: - acetaminophen 500 mg by mouth as needed - aspirin 81 mg by mouth daily - losartan 100 mg by mouth daily DISCHARGE INSTRUCTIONS: The patient is instructed to followup with primary care provider in 7 days. Return to the hospital if symptoms worsen. Monitor blood pressure on a daily basis.
== END 2017-02-16 14:19 | disposition home or self-care (01) ==
LOC: M ED 11:33 → M ED INP 14:54 → M PCU 16:08
PROVIDERS: ADMIT Internal Medicine; ATTEND Internal Medicine
DX: G45.4 Transient global amnesia (principal); C44.320 Squamous cell carcinoma of skin of unspecified parts of face; I10 Essential (primary) hypertension; Z87.442 Personal history of urinary calculi; E78.5 Hyperlipidemia, unspecified; Z79.899 Other long term (current) drug therapy; Z79.82 Long term (current) use of aspirin
CPT/HCPCS: 36415; 70450; 70544; 70551; 71010; 80048; 80061; 80076; 81001; 82140; 82550; 82553; 83036; 83605; 84443; 84484; 85025; 85027; 85610; 85730; 86850; 86900; 86901; 87486; 87581; 87633; 87798; 93005; 93041; 93880; 94760; 95816; 97161; 97165; 99285; G0378; G8978; G8979; G8987; G8988; G8989; G8990

== ENCOUNTER → 2017-10-21 | Outpatient (CLI) | payer MEDICARE, BC, OTHER ==
[2017-10-21 14:28] LABS: BASO % 0.4 % (0.0-1.0); EOS % 0.6 % (0.0-3.0); HEMATOCRIT 46.4 % (42.0-52.0); HEMOGLOBIN 16.5 g/dl (13.5-17.5); IMMATURE GRANULOCYTE % 0.3 % (0-3.0); LYMPH % 30.2 % (24.0-44.0); MEAN CORPUSCULAR HEMOGLOBIN 32.5 pg (27.0-33.0); MEAN CORPUSCULAR HGB CONC 35.6 g/dl (32.0-36.5); MEAN CORPUSCULAR VOLUME 91.3 fl (80.0-96.0); MONO # 0.6 10^3/uL (0.0-0.8); MONO % 9.1 % (0.0-5.0); NEUTROPHILS % 59.4 % (36.0-66.0); PLATELET COUNT, AUTOMATED 229 10^3/uL (150-450); RED BLOOD COUNT 5.08 10^6/uL (4.30-6.10); RED CELL DISTRIBUTION WIDTH 12.6 % (11.5-14.5); WHITE BLOOD COUNT 6.7 10^3/uL (4.0-10.0)
[2017-10-21 15:01] LABS: ALBUMIN/GLOBULIN RATIO 1.14 (1.00-1.93); ALKALINE PHOSPHATASE 75 U/L (45-117); ALT/SGPT 58 U/L (12-78); ANION GAP 9 MEQ/L (8-16); AST/SGOT 31 U/L (7-37); BILIRUBIN,TOTAL 0.7 MG/DL (0.2-1.0); BLOOD UREA NITROGEN 50 MG/DL (7-18); CARBON DIOXIDE LEVEL 25 MEQ/L (21-32); CHLORIDE LEVEL 106 MEQ/L (98-107); CREATININE FOR GFR 2.24 MG/DL (0.70-1.30); GLOMERULAR FILTRATION RATE 31.5 (>49); GLUCOSE, FASTING 91 MG/DL (70-100); LIPASE 105 U/L (73-393); POTASSIUM SERUM 3.8 MEQ/L (3.5-5.1); SODIUM LEVEL 140 MEQ/L (136-145); TOTAL PROTEIN 7.5 GM/DL (6.4-8.2)
== END ==
LOC: M LAB 14:01
DX: R10.13 Epigastric pain (principal); R19.7 Diarrhea, unspecified
CPT/HCPCS: 83690

== ENCOUNTER → 2018-09-26 | Outpatient (CLI) | payer MEDICARE, BC, OTHER ==
[~2018-09-26] MED LIST changes: +ACET500T15 PO; +CEPH500C PO; +FLOM0.4C39 PO; -FLOM5CAP PO; +LOSA100T50 PO
--- NOTE | 2018-09-26 15:54 | REP ---
BILATERAL KNEES, NINE VIEWS: HISTORY: Bilateral pain. RIGHT KNEE: There is no acute fracture or dislocation. The joint spaces are normal in appearance. IMPRESSION: There is no acute fracture or dislocation. LEFT KNEE: There is no acute fracture or dislocation. There is mild narrowing of the medial knee joint space and minimal narrowing of the lateral knee joint space. The patellofemoral joint space is normal in appearance. IMPRESSION: Degenerative change as described above. Electronically Signed by Serafin Linares MD 09/26/2018 03:57 P
[2018-09-26 17:47] LABS: ALBUMIN 4.1 GM/DL (3.2-5.2); ALT/SGPT 53 U/L (12-78); AMYLASE 40 U/L (25-115); BILIRUBIN,TOTAL 0.5 MG/DL (0.2-1.0); BLOOD UREA NITROGEN 20 MG/DL (7-18); C REACTIVE PROTEIN QUANTITATIV < 0.30 MG/DL (0.00-0.30); CALCIUM LEVEL 9.2 MG/DL (8.8-10.2); CARBON DIOXIDE LEVEL 29 MEQ/L (21-32); CHLORIDE LEVEL 107 MEQ/L (98-107); CREATININE FOR GFR 1.03 MG/DL (0.70-1.30); GLOMERULAR FILTRATION RATE > 60.0 (>49); GLUCOSE, FASTING 83 MG/DL (70-100); LIPASE 85 U/L (73-393); POTASSIUM SERUM 4.1 MEQ/L (3.5-5.1); RHEUMATOID FACTOR QUANT < 10.0 IU/ML (<15.0); SODIUM LEVEL 142 MEQ/L (136-145); TOTAL PROTEIN 7.3 GM/DL (6.4-8.2)
[2018-09-26 17:58] LABS: BASO # 0.1 10^3/uL (0.0-0.2); EOS # 0.1 10^3/uL (0.0-0.50); HEMATOCRIT 48.7 % (42.0-52.0); HEMOGLOBIN 17.1 g/dl (13.5-17.5); LYMPH # 2.2 10^3/uL (1.5-4.5); LYMPH % 27.3 % (24.0-44.0); MEAN CORPUSCULAR HEMOGLOBIN 33.4 pg (27.0-33.0); MEAN CORPUSCULAR HGB CONC 35.1 g/dl (32.0-36.5); MEAN CORPUSCULAR VOLUME 95.1 fl (80.0-96.0); MONO # 0.8 10^3/uL (0.0-0.8); MONO % 9.3 % (0.0-5.0); NEUTROPHILS # 4.9 10^3/uL (1.8-7.7); NEUTROPHILS % 60.8 % (36.0-66.0); PLATELET COUNT, AUTOMATED 200 10^3/uL (150-450); RED BLOOD COUNT 5.12 10^6/uL (4.30-6.10); WHITE BLOOD COUNT 8.1 10^3/uL (4.0-10.0)
[2018-09-26 19:24] LABS: ERYTHROCYTE SEDIMENTATION RATE 5 mm/hr (0-20)
== END ==
LOC: M SMT 14:42
PROVIDERS: ATTEND Family Medicine
DX: M17.12 Unilateral primary osteoarthritis, left knee (principal)

== ENCOUNTER → 2019-11-09 | Outpatient (CLI) | payer MEDICARE, OTHER ==
[~2019-11-09] MED LIST changes: -ASPI1TAB PO; +ASPI81TA26 PO
[2019-11-09 13:30] LABS: BASO # 0.1 10^3/uL (0.0-0.2); BASO % 1.6 % (0.0-1.0); EOS # 0.1 10^3/uL (0.0-0.5); EOS % 1.6 % (0.0-3.0); HEMOGLOBIN 16.3 g/dl (13.5-17.5); LYMPH # 1.9 10^3/uL (1.5-5.0); LYMPH % 39.8 % (24.0-44.0); MEAN CORPUSCULAR HEMOGLOBIN 33.1 pg (27.0-33.0); MEAN CORPUSCULAR HGB CONC 34.7 g/dl (32.0-36.5); MEAN CORPUSCULAR VOLUME 95.5 fl (80.0-96.0); MONO # 0.4 10^3/uL (0.0-0.8); MONO % 8.9 % (0.0-5.0); NEUTROPHILS # 2.3 10^3/uL (1.5-8.5); NEUTROPHILS % 47.9 % (36.0-66.0); PLATELET COUNT, AUTOMATED 177 10^3/uL (150-450); RED BLOOD COUNT 4.92 10^6/uL (4.30-6.10); WHITE BLOOD COUNT 4.9 10^3/uL (4.0-10.0)
[2019-11-09 13:42] LABS: ALBUMIN 3.8 GM/DL (3.2-5.2); ALT/SGPT 53 U/L (12-78); BILIRUBIN,TOTAL 0.7 MG/DL (0.2-1.0); BLOOD UREA NITROGEN 19 MG/DL (7-18); CALCIUM LEVEL 9.3 MG/DL (8.8-10.2); CARBON DIOXIDE LEVEL 27 MEQ/L (21-32); CHLORIDE LEVEL 108 MEQ/L (98-107); CHOLESTEROL LEVEL 184 MG/DL (<200); CREATININE FOR GFR 0.91 MG/DL (0.70-1.30); FREE T4 1.04 NG/DL (0.76-1.46); GLOMERULAR FILTRATION RATE > 60.0 (>49); GLUCOSE, FASTING 97 MG/DL (70-100); HDL CHOLESTEROL 46 MG/DL (>40); LDL CHOLESTEROL 109 MG/DL (<100); NON-HDL-C 138 MG/DL; POTASSIUM SERUM 4.9 MEQ/L (3.5-5.1); SODIUM LEVEL 139 MEQ/L (136-145); THYROID STIMULATING HORMONE 0.926 uIU/ML (0.358-3.740); TOTAL PROTEIN 7.1 GM/DL (6.4-8.2); TRIGLYCERIDES LEVEL 145 MG/DL (<150)
[2019-11-11 00:07] LABS: PSA TOTAL 1.5 ng/mL (0.0-4.0)
== END ==
LOC: M WUC 10:28
PROVIDERS: ATTEND Physician Assistant
DX: I10 Essential (primary) hypertension (principal); Z12.5 Encounter for screening for malignant neoplasm of prostate

== ENCOUNTER → 2020-05-03 | Outpatient (CLI) | payer MEDICARE, OTHER ==
[2020-05-03 09:55] LABS: BASO # 0.1 10^3/uL (0.0-0.2); BASO % 1.8 % (0.0-1.0); EOS # 0.2 10^3/uL (0.0-0.5); EOS % 3.2 % (0.0-3.0); HEMATOCRIT 48.8 % (42.0-52.0); HEMOGLOBIN 16.4 g/dl (13.5-17.5); LYMPH # 1.8 10^3/uL (1.5-5.0); LYMPH % 34.7 % (24.0-44.0); MEAN CORPUSCULAR HEMOGLOBIN 32.5 pg (27.0-33.0); MEAN CORPUSCULAR HGB CONC 33.6 g/dl (32.0-36.5); MEAN CORPUSCULAR VOLUME 96.8 fl (80.0-96.0); MONO # 0.5 10^3/uL (0.0-0.8); MONO % 9.1 % (0.0-5.0); NEUTROPHILS # 2.6 10^3/uL (1.5-8.5); NEUTROPHILS % 50.8 % (36.0-66.0); PLATELET COUNT, AUTOMATED 195 10^3/uL (150-450); RED BLOOD COUNT 5.04 10^6/uL (4.30-6.10); WHITE BLOOD COUNT 5.1 10^3/uL (4.0-10.0)
[2020-05-03 10:24] LABS: ALBUMIN 3.9 GM/DL (3.2-5.2); ALT/SGPT 65 U/L (12-78); BILIRUBIN,TOTAL 0.7 MG/DL (0.2-1.0); BLOOD UREA NITROGEN 21 MG/DL (7-18); CALCIUM LEVEL 9.3 MG/DL (8.8-10.2); CARBON DIOXIDE LEVEL 30 MEQ/L (21-32); CHLORIDE LEVEL 107 MEQ/L (98-107); CHOLESTEROL LEVEL 160 MG/DL (<200); CREATININE FOR GFR 0.99 MG/DL (0.70-1.30); FREE T4 1.06 NG/DL (0.76-1.46); GLOMERULAR FILTRATION RATE > 60.0 (>49); GLUCOSE, FASTING 92 MG/DL (70-100); HDL CHOLESTEROL 40 MG/DL (>40); LDL CHOLESTEROL 87 MG/DL (<100); NON-HDL-C 120 MG/DL; POTASSIUM SERUM 4.5 MEQ/L (3.5-5.1); SODIUM LEVEL 142 MEQ/L (136-145); TOTAL PROTEIN 7.2 GM/DL (6.4-8.2); TRIGLYCERIDES LEVEL 165 MG/DL (<150)
== END ==
LOC: M WUC 08:22
PROVIDERS: ATTEND Physician Assistant
DX: I10 Essential (primary) hypertension (principal); K21.9 Gastro-esophageal reflux disease without esophagitis

== ENCOUNTER → 2020-11-19 | Outpatient (CLI) | payer MEDICARE, OTHER ==
[2020-11-19 09:54] LABS: BASO # 0.1 10^3/uL (0.0-0.2); BASO % 1.6 % (0.0-1.0); EOS # 0.1 10^3/uL (0.0-0.5); EOS % 2.4 % (0.0-3.0); HEMATOCRIT 48.9 % (42.0-52.0); HEMOGLOBIN 16.7 g/dl (13.5-17.5); LYMPH # 1.7 10^3/uL (1.5-5.0); MEAN CORPUSCULAR HEMOGLOBIN 32.8 pg (27.0-33.0); MEAN CORPUSCULAR HGB CONC 34.2 g/dl (32.0-36.5); MEAN CORPUSCULAR VOLUME 96.1 fl (80.0-96.0); MONO # 0.5 10^3/uL (0.0-0.8); MONO % 10.3 % (2.0-8.0); NEUTROPHILS # 2.5 10^3/uL (1.5-8.5); NEUTROPHILS % 50.5 % (36.0-66.0); PLATELET COUNT, AUTOMATED 181 10^3/uL (150-450); RED BLOOD COUNT 5.09 10^6/uL (4.30-6.10)
[2020-11-19 10:30] LABS: ALT/SGPT 74 U/L (12-78); BILIRUBIN,TOTAL 0.8 MG/DL (0.2-1.0); BLOOD UREA NITROGEN 19 MG/DL (7-18); CALCIUM LEVEL 9.5 MG/DL (8.8-10.2); CARBON DIOXIDE LEVEL 30 MEQ/L (21-32); CHLORIDE LEVEL 106 MEQ/L (98-107); CHOLESTEROL LEVEL 191 MG/DL (<200); CHOLESTEROL RISK RATIO 3.745 (<5); CREATININE FOR GFR 0.82 MG/DL (0.70-1.30); FREE T4 1.02 NG/DL (0.76-1.46); GLOMERULAR FILTRATION RATE > 60.0 (>49); GLUCOSE, FASTING 96 MG/DL (70-100); HDL CHOLESTEROL 51 MG/DL (>40); LDL CHOLESTEROL 110 MG/DL (<100); NON-HDL-C 140 MG/DL; POTASSIUM SERUM 4.3 MEQ/L (3.5-5.1); SODIUM LEVEL 139 MEQ/L (136-145); TOTAL PROTEIN 7.1 GM/DL (6.4-8.2); TRIGLYCERIDES LEVEL 149 MG/DL (<150)
== END ==
LOC: M WUC 08:14
PROVIDERS: ATTEND Physician Assistant
DX: I10 Essential (primary) hypertension (principal); K21.9 Gastro-esophageal reflux disease without esophagitis; Z12.5 Encounter for screening for malignant neoplasm of prostate

== ENCOUNTER → 2022-06-03 | Outpatient (CLI) | payer MEDICARE, BC, OTHER ==
[~2022-06-03] MED LIST changes: +LOSA100T45 PO; -LOSA100T50 PO; -TRIA37.53 PO; +TRIA37.577 PO
== END ==
LOC: M PLAIMG 12:36
PROVIDERS: ATTEND Physician Assistant
DX: R91.1 Solitary pulmonary nodule (principal); N28.1 Cyst of kidney, acquired

== ENCOUNTER → 2023-06-01 | Outpatient (CLI) | payer MEDICARE, BC, OTHER ==
[~2023-06-01] MED LIST changes: -LOSA100T45 PO; +LOSA100T46 PO
== END ==
LOC: M PLAIMG 08:59
PROVIDERS: ATTEND Physician Assistant
DX: R91.8 Other nonspecific abnormal finding of lung field (principal); K76.89 Other specified diseases of liver

== ENCOUNTER 2023-09-02 07:45 | Day surgery (SDC) | payer MEDICARE, BC, OTHER ==
[~2023-09-02] VITALS: Ht 177.8 cm; Wt 103.0 kg
[~2023-09-02 07:45] MED LIST changes: +MELO15TA28 PO; +OMEP-173 PO; +ROSU10TA6 PO
[2023-09-02] MEDS: NS 1,000 ML IV ONE (08:17)
[2023-09-02] MEDS ORDERED: propofoL 200 MG/20 ML VIAL As Ordered ONE (08:38)
[2023-09-02 09:43] VITALS: TEMP 96.8
[2023-09-02 10:00] VITALS: BP 136/92; O2SAT 97
== END 2023-09-02 10:03 | disposition home or self-care (01) ==
LOC: M OPP 07:45
PROVIDERS: ATTEND Surgery
DX: Z12.11 Encounter for screening for malignant neoplasm of colon (principal); K64.4 Residual hemorrhoidal skin tags; K64.8 Other hemorrhoids; K57.30 Diverticulosis of large intestine without perforation or abscess without bleeding; Z86.73 Personal history of transient ischemic attack (TIA), and cerebral infarction without residual deficits; Z79.02 Long term (current) use of antithrombotics/antiplatelets; Z79.1 Long term (current) use of non-steroidal anti-inflammatories (NSAID); Z79.82 Long term (current) use of aspirin; Z79.899 Other long term (current) drug therapy

== ENCOUNTER → 2023-12-09 | Outpatient (CLI) | payer MEDICARE, BC, OTHER ==
[~2023-12-09] MED LIST changes: -ROSU10TA6 PO; +ROSU10TA61 PO
[2023-12-09 12:03] LABS: BASO # 0.1 10^3/uL (0.0-0.2); BASO % 1.6 % (0.0-1.0); EOS # 0.1 10^3/uL (0.0-0.5); EOS % 2.7 % (0.0-3.0); HEMATOCRIT 47.2 % (42.0-52.0); HEMOGLOBIN 16.3 g/dl (13.5-17.5); LYMPH # 1.5 10^3/uL (1.5-5.0); LYMPH % 29.8 % (24.0-44.0); MEAN CORPUSCULAR HEMOGLOBIN 33.4 pg (27.0-33.0); MEAN CORPUSCULAR HGB CONC 34.5 g/dl (32.0-36.5); MEAN CORPUSCULAR VOLUME 96.7 fl (80.0-96.0); MONO # 0.4 10^3/uL (0.0-0.8); NEUTROPHILS % 57.9 % (36.0-66.0); PLATELET COUNT, AUTOMATED 159 10^3/uL (150-450); RED BLOOD COUNT 4.88 10^6/uL (4.30-6.10); WHITE BLOOD COUNT 5.1 10^3/uL (4.0-10.0)
[2023-12-09 12:08] LABS: HEMOGLOBIN A1c 5.3 % (4.0-6.0)
[2023-12-09 12:20] LABS: ALBUMIN 3.9 G/DL (3.2-5.2); ALKALINE PHOSPHATASE 97 U/L (46-116); ALT/SGPT 38 U/L (7.0-40); AST/SGOT 27 U/L (<34); BILIRUBIN,TOTAL 0.8 MG/DL (0.3-1.2); BLOOD UREA NITROGEN 17 MG/DL (9-23); CALCIUM LEVEL 9.4 MG/DL (8.3-10.6); CARBON DIOXIDE LEVEL 28 MMOL/L (20-31); CHLORIDE LEVEL 108 MMOL/L (98-107); CHOLESTEROL LEVEL 114 MG/DL (<200); CHOLESTEROL RISK RATIO 2.55 (<5); CREATININE FOR GFR 0.84 MG/DL (0.70-1.30); FREE T4 1.16 NG/DL (0.89-1.76); GLOMERULAR FILTRATION RATE > 60.0 (>42); GLUCOSE, FASTING 99 MG/DL (74-106); HDL CHOLESTEROL 44.6 MG/DL (>40); LDL CHOLESTEROL 45.4 MG/DL (<100); NON-HDL-C 69.4 MG/DL; POTASSIUM SERUM 4.2 MMOL/L (3.5-5.1); PSA SCREENING 4.45 NG/ML (< 4.00); SODIUM LEVEL 141 MMOL/L (136-145); TOTAL PROTEIN 6.5 G/DL (5.7-8.2); TRIGLYCERIDES LEVEL 120 MG/DL (<150)
[2023-12-09 12:21] LABS: THYROID STIMULATING HORMONE 2.024 uIU/ML (0.55-4.78)
== END ==
LOC: M WUC 08:04
PROVIDERS: ATTEND Physician Assistant
DX: I25.10 Atherosclerotic heart disease of native coronary artery without angina pectoris (principal); N40.1 Benign prostatic hyperplasia with lower urinary tract symptoms; Z12.5 Encounter for screening for malignant neoplasm of prostate; Z79.899 Other long term (current) drug therapy
CPT/HCPCS: 36415; 80053; 80061; 83036; 84439; 84443; 85025; G0103

== ENCOUNTER → 2024-04-29 | Outpatient (CLI) | payer MEDICARE, BC ==
[2024-05-02 14:41] LABS: PSA FREE 1.5 ng/mL; PSA TOTAL 7.6 ng/mL (< OR = 4.0)
== END ==
LOC: M LAB 08:07
PROVIDERS: ATTEND Physician Assistant
DX: R97.20 Elevated prostate specific antigen [PSA] (principal)

== ENCOUNTER → 2024-05-23 | Outpatient (REF) | payer MEDICARE, BC | LOC: M SMT PRO 13:04 | PROVIDERS: ATTEND Urology | DX: R97.20 Elevated prostate specific antigen [PSA] (principal); C61 Malignant neoplasm of prostate ==

== ENCOUNTER → 2024-05-31 | Outpatient (CLI) | payer MEDICARE, BC ==
[2024-05-31 10:54] LABS: BLOOD UREA NITROGEN 23 MG/DL (9-23); CALCIUM LEVEL 9.8 MG/DL (8.3-10.6); CARBON DIOXIDE LEVEL 28 MMOL/L (20-31); CHLORIDE LEVEL 109 MMOL/L (98-107); CREATININE FOR GFR 1.13 MG/DL (0.70-1.30); GLOMERULAR FILTRATION RATE > 60.0 (>42); GLUCOSE, FASTING 105 MG/DL (74-106); POTASSIUM SERUM 4.3 MMOL/L (3.5-5.1); SODIUM LEVEL 143 MMOL/L (136-145)
== END ==
LOC: M WUC 08:02
PROVIDERS: ATTEND Urology
DX: C61 Malignant neoplasm of prostate (principal)

== ENCOUNTER → 2024-06-13 | Outpatient (CLI) | payer MEDICARE, BC ==
[2024-06-13 11:40] LABS: HEMATOCRIT 43.2 % (42.0-52.0); HEMOGLOBIN 14.8 g/dl (13.5-17.5); MEAN CORPUSCULAR HEMOGLOBIN 33.1 pg (27.0-33.0); MEAN CORPUSCULAR HGB CONC 34.3 g/dl (32.0-36.5); MEAN CORPUSCULAR VOLUME 96.6 fl (80.0-96.0); PLATELET COUNT, AUTOMATED 195 10^3/uL (150-450); RED BLOOD COUNT 4.47 10^6/uL (4.30-6.10); WHITE BLOOD COUNT 5.4 10^3/uL (4.0-10.0)
[2024-06-13 12:15] LABS: BLOOD UREA NITROGEN 24 MG/DL (9-23); CALCIUM LEVEL 9.7 MG/DL (8.3-10.6); CARBON DIOXIDE LEVEL 28 MMOL/L (20-31); CHLORIDE LEVEL 107 MMOL/L (98-107); CREATININE FOR GFR 1.15 MG/DL (0.70-1.30); GLOMERULAR FILTRATION RATE > 60.0 (>42); GLUCOSE, FASTING 112 MG/DL (74-106); POTASSIUM SERUM 4.1 MMOL/L (3.5-5.1); SODIUM LEVEL 141 MMOL/L (136-145)
== END ==
LOC: M WUC 08:05
PROVIDERS: ATTEND Urology
DX: Z01.818 Encounter for other preprocedural examination (principal); N20.0 Calculus of kidney; N39.0 Urinary tract infection, site not specified

== ENCOUNTER 2024-06-21 06:11 | Day surgery (SDC) | payer MEDICARE, BC ==
[~2024-06-21] VITALS: Ht 177.8 cm; Wt 107.5 kg
[2024-06-21] MEDS ORDERED: NS (Normal Saline) 0.9% 1,000 ML IV SCH ×2 (06:45→08:50)
[2024-06-21] MEDS ORDERED: LIDOCAINE 1% SDV 5ML VIAL SC PRN (06:45)
[2024-06-21] MEDS ORDERED: fentaNYL 100 MCG/2 ML INJECTION As Ordered ONE (07:17)
[2024-06-21] MEDS ORDERED: ONDANSETRON 4MG 2ML VIAL As Ordered ONE (07:17)
[2024-06-21] MEDS ORDERED: propofoL 200 MG/20 ML VIAL As Ordered ONE (07:17)
[2024-06-21] MEDS ORDERED: LIDOCAINE 2% 100MG/5ML SDV (FOR ANES.) As Ordered ONE (07:17)
[2024-06-21] MEDS ORDERED: MIDAZOLAM INJ 2MG/2ML VIAL As Ordered ONE (07:17)
[2024-06-21] MEDS: ceFAZolin SOD 2 GM in IV 1 EA IV ONE (07:43)
[2024-06-21] MEDS ORDERED: ACETAMINOPHEN 1000MG/100ML IV BAG As Ordered ONE (07:47)
[2024-06-21] MEDS ORDERED: ePHEDrine SULFATE 25 MG/5 ML(5MG/ML) SYRINGE As Ordered ONE (08:07)
[2024-06-21] MEDS: ISOVUE-300 61% 100ML VIAL As Ordered ONE (08:30)
[2024-06-21] MEDS ORDERED: oxyCODONE 5MG TAB PO PRN (08:50)
[2024-06-21] MEDS ORDERED: fentaNYL 100 MCG/2 ML INJECTION IV PRN (08:50)
[2024-06-21] MEDS ORDERED: HYDROMORPHONE HCL 0.5 MG/ 0.5 ML SYRINGE IV PRN (08:50)
[2024-06-21] MEDS ORDERED: ONDANSETRON 4MG 2ML VIAL IV PRN (08:50)
[2024-06-21 09:50] VITALS: BP 163/87; TEMP 97; O2SAT 96
[2024-06-21] MEDS ORDERED: PERCOCET 5MG/325MG TAB PO PRN (10:20)
== END 2024-06-21 09:52 | disposition home or self-care (01) ==
LOC: M SDC 06:11
PROVIDERS: ATTEND Urology
DX: N13.2 Hydronephrosis with renal and ureteral calculous obstruction (principal); I10 Essential (primary) hypertension; E78.00 Pure hypercholesterolemia, unspecified; K21.9 Gastro-esophageal reflux disease without esophagitis; Z85.46 Personal history of malignant neoplasm of prostate; Z85.828 Personal history of other malignant neoplasm of skin; Z79.899 Other long term (current) drug therapy; Z79.82 Long term (current) use of aspirin
CPT/HCPCS: 52352; 52356; 76000; 82365; C1769; C1894; C2617; J0131; J0690; J1100; J2250; J2405; J3010; Q9967

== ENCOUNTER → 2024-06-27 | Outpatient (CLI) | payer MEDICARE, BC ==
[2024-06-27 10:52] LABS: HEMATOCRIT 45.3 % (42.0-52.0); HEMOGLOBIN 15.7 g/dl (13.5-17.5); MEAN CORPUSCULAR HEMOGLOBIN 33.3 pg (27.0-33.0); MEAN CORPUSCULAR HGB CONC 34.7 g/dl (32.0-36.5); PLATELET COUNT, AUTOMATED 178 10^3/uL (150-450); RED BLOOD COUNT 4.72 10^6/uL (4.30-6.10); WHITE BLOOD COUNT 5.5 10^3/uL (4.0-10.0)
[2024-06-27 11:11] LABS: INR 1.01; PARTIAL THROMBOPLASTIN TIME 31.2 SECONDS (24.8-34.2); PROTHROMBIN TIME 13.6 SECONDS (12.5-14.5)
[2024-06-27 11:22] LABS: BLOOD UREA NITROGEN 23 MG/DL (9-23); CARBON DIOXIDE LEVEL 28 MMOL/L (20-31); CHLORIDE LEVEL 106 MMOL/L (98-107); CREATININE FOR GFR 1.02 MG/DL (0.70-1.30); GLOMERULAR FILTRATION RATE > 60.0 (>42); GLUCOSE, FASTING 93 MG/DL (74-106); SODIUM LEVEL 142 MMOL/L (136-145)
== END ==
LOC: M WUC 08:29
PROVIDERS: ATTEND Urology
DX: Z01.818 Encounter for other preprocedural examination (principal); C61 Malignant neoplasm of prostate; Z79.01 Long term (current) use of anticoagulants

== ENCOUNTER 2024-07-06 10:12 | Day surgery (SDC) | payer MEDICARE, BC ==
[~2024-07-06] VITALS: Ht 177.8 cm; Wt 102.9 kg
[2024-07-06] MEDS: DOCUSATE SODIUM 100MG CAPSULE PO SCH (09:00)
[~2024-07-06 10:12] MED LIST changes: +LIDOCAINE 2% 100MG/5ML SDV (FOR ANES.) As Ordered ONE; +ONDANSETRON 4MG 2ML VIAL As Ordered ONE; +ROCURONIUM BROMIDE 50MG/5ML VIAL As Ordered ONE; +SUGAMMADEX SODIUM 500 MG/5 ML VIAL (BRIDION) As Ordered ONE; +propofoL 200 MG/20 ML VIAL As Ordered ONE
[2024-07-06] MEDS ORDERED: LR 1,000 ML IV SCH (10:50)
[2024-07-06] MEDS ORDERED: MIDAZOLAM INJ 2MG/2ML VIAL As Ordered ONE (11:01)
[2024-07-06] MEDS ORDERED: fentaNYL 250 MCG/5 ML INJECTION As Ordered ONE (11:01)
[2024-07-06] MEDS ORDERED: ONDANSETRON 4MG 2ML VIAL IV PRN ×2 (11:55→17:15)
[2024-07-06] MEDS ORDERED: PERCOCET 5MG/325MG TAB PO PRN (11:55)
[2024-07-06] MEDS ORDERED: ACETAMINOPHEN 325 MG TAB PO PRN (11:55)
[2024-07-06] MEDS: ceFAZolin SOD 2 GM in IV 1 EA IV ONE (12:12)
[2024-07-06] MEDS ORDERED: ACETAMINOPHEN 1000MG/100ML IV BAG As Ordered ONE (12:19)
[2024-07-06] MEDS: HEPARIN SOD (PORCINE) 5000UNITS/ML 1ML VIAL/SYRINGE SQ ONE (12:20)
[2024-07-06] MEDS ORDERED: HYDROmorphone HCL 2MG/ML 1ML VIAL As Ordered ONE (13:22)
[2024-07-06] MEDS: ceFAZolin 2 GM/D5W 50 ML IV BAG As Ordered ONE (16:13)
[2024-07-06] MEDS ORDERED: oxyCODONE 5MG TAB PO PRN (17:15)
[2024-07-06] MEDS: LIDOCAINE 1% SDV 30ML VIAL As Ordered ONE (17:20)
[2024-07-06] MEDS: fentaNYL 100 MCG/2 ML INJECTION IV PRN (18:01)
[2024-07-06 18:15] LABS: HEMATOCRIT 42.4 % (42.0-52.0); HEMOGLOBIN 14.7 g/dl (13.5-17.5); MEAN CORPUSCULAR HEMOGLOBIN 33.4 pg (27.0-33.0); MEAN CORPUSCULAR HGB CONC 34.7 g/dl (32.0-36.5); MEAN CORPUSCULAR VOLUME 96.4 fl (80.0-96.0); PLATELET COUNT, AUTOMATED 173 10^3/uL (150-450); WHITE BLOOD COUNT 10.4 10^3/uL (4.0-10.0)
[2024-07-06 18:42] LABS: BLOOD UREA NITROGEN 24 MG/DL (9-23); CALCIUM LEVEL 9.2 MG/DL (8.3-10.6); CARBON DIOXIDE LEVEL 21 MMOL/L (20-31); CHLORIDE LEVEL 109 MMOL/L (98-107); CREATININE FOR GFR 1.13 MG/DL (0.70-1.30); GLOMERULAR FILTRATION RATE > 60.0 (>42); GLUCOSE, FASTING 147 MG/DL (74-106); POTASSIUM SERUM 4.5 MMOL/L (3.5-5.1); SODIUM LEVEL 142 MMOL/L (136-145)
[2024-07-06 19:09] VITALS: BP 145/93; TEMP 97.2; O2SAT 96
[2024-07-06 20:50] VITALS: BP 144/93; TEMP 97.7; O2SAT 96
[2024-07-06] MEDS: PERCOCET 5MG/325MG TAB PO PRN (21:57)
[2024-07-06] MEDS: ceFAZolin SOD 1 GM in DEXTROSE 5% (D5W) ADV/MINI-BAG 50 ML IV SCH (21:57)
[2024-07-06] MEDS: NS (Normal Saline) 0.9% 500 ML IV SCH (21:58)
[2024-07-07 00:10] VITALS: BP 117/77; TEMP 97.5; O2SAT 94
[2024-07-07 03:30] VITALS: BP 118/78; TEMP 97.7; O2SAT 94
[2024-07-07 05:06] LABS: HEMATOCRIT 42.3 % (42.0-52.0); HEMOGLOBIN 14.6 g/dl (13.5-17.5); MEAN CORPUSCULAR HEMOGLOBIN 33.3 pg (27.0-33.0); MEAN CORPUSCULAR HGB CONC 34.5 g/dl (32.0-36.5); MEAN CORPUSCULAR VOLUME 96.6 fl (80.0-96.0); PLATELET COUNT, AUTOMATED 201 10^3/uL (150-450); RED BLOOD COUNT 4.38 10^6/uL (4.30-6.10); WHITE BLOOD COUNT 11.7 10^3/uL (4.0-10.0)
[2024-07-07 05:34] LABS: BLOOD UREA NITROGEN 25 MG/DL (9-23); CALCIUM LEVEL 9.4 MG/DL (8.3-10.6); CARBON DIOXIDE LEVEL 23 MMOL/L (20-31); CHLORIDE LEVEL 105 MMOL/L (98-107); GLOMERULAR FILTRATION RATE > 60.0 (>42); GLUCOSE, FASTING 116 MG/DL (74-106); POTASSIUM SERUM 4.4 MMOL/L (3.5-5.1); SODIUM LEVEL 139 MMOL/L (136-145)
[2024-07-07] MEDS: HEPARIN SOD (PORCINE) 5000UNITS/ML 1ML VIAL/SYRINGE SC SCH (06:21)
[2024-07-07 08:00] VITALS: BP 130/80; TEMP 98.1; O2SAT 95
[2024-07-07 09:13] VITALS: BP 122/82
[2024-07-07] MEDS: OMEPRAZOLE 20MG CAP PO SCH (09:13)
[2024-07-07] MEDS: LOSARTAN 50MG TABLET PO SCH (09:13)
[2024-07-07] MEDS: ROSUVASTATIN 10 MG TAB (CRESTOR) PO SCH (09:13)
[2024-07-07] MEDS ORDERED: PERCOCET PO (09:25)
[2024-07-07] MEDS ORDERED: COLA100C5 PO (09:25)
[2024-07-07] MEDS ORDERED: BACT800T5 PO (09:25)
[2024-07-07 12:00] VITALS: BP 124/80; TEMP 98.1; O2SAT 94
== END 2024-07-07 13:52 | disposition home or self-care (01) ==
LOC: M SDC 10:12 → M MSPAV 18:34 → M SDC 07-07 13:52
PROVIDERS: ATTEND Urology
DX: C61 Malignant neoplasm of prostate (principal); N20.2 Calculus of kidney with calculus of ureter; I10 Essential (primary) hypertension; E78.5 Hyperlipidemia, unspecified; K21.9 Gastro-esophageal reflux disease without esophagitis; Z86.73 Personal history of transient ischemic attack (TIA), and cerebral infarction without residual deficits; Z79.82 Long term (current) use of aspirin
CPT/HCPCS: 36415; 38589; 55866; 80048; 85027; 86850; 86900; 86901; 88305; 88309; 96365; 96366; 96372; J0131; J0665; J0690; J1100; J1171; J2250; J2405; J3010; S2900

== ENCOUNTER → 2024-08-11 | Outpatient (CLI) | payer MEDICARE, BC ==
[~2024-08-11] MED LIST changes: +BACT800T5 PO; +COLA100C5 PO; -LIDOCAINE 2% 100MG/5ML SDV (FOR ANES.) As Ordered ONE; -ONDANSETRON 4MG 2ML VIAL As Ordered ONE; +PERCOCET PO; -ROCURONIUM BROMIDE 50MG/5ML VIAL As Ordered ONE; -SUGAMMADEX SODIUM 500 MG/5 ML VIAL (BRIDION) As Ordered ONE; -propofoL 200 MG/20 ML VIAL As Ordered ONE
== END ==
LOC: M WUC 08:03
PROVIDERS: ATTEND Physician Assistant
DX: C61 Malignant neoplasm of prostate (principal)

== ENCOUNTER → 2024-10-02 | Outpatient (REF) | payer MEDICARE, BC ==
[2024-10-02 17:23] LABS: APPEARANCE, URINE CLEAR (CLEAR); BACTERIA, URINE AUTO NEGATIVE (NEGATIVE); BILIRUBIN, URINE AUTO NEGATIVE (NEGATIVE); BLOOD, URINE BLOOD 1+ (NEGATIVE); COLOR, URINE YELLOW (YELLOW); GLUCOSE, URINE (UA) AUTO NEGATIVE (NEGATIVE); KETONE, URINE AUTO NEGATIVE (NEGATIVE); LEUKOCYTE ESTERASE, URINE AUTO NEGATIVE (NEGATIVE); MUCUS, URINE SMALL (NEGATIVE); NITRITE, URINE AUTO NEGATIVE (NEGATIVE); PROTEIN, URINE AUTO NEGATIVE (NEGATIVE); RBC, URINE AUTO 18 /HPF (0-3); SPECIFIC GRAVITY URINE AUTO 1.019 (1.002-1.035); SQUAMOUS EPITHELIAL CELL UR AU 0 /HPF (0-6); UROBILINOGEN, URINE AUTO 0.2 mg/dL (0.0-2.0); WBC, URINE AUTO 1 /HPF (0-3)
== END ==
LOC: M SMT 16:58
PROVIDERS: ATTEND Nurse Practitioner Family
DX: R39.9 Unspecified symptoms and signs involving the genitourinary system (principal)

== ENCOUNTER → 2024-11-10 | Outpatient (REF) | payer MEDICARE, BC ==
[~2024-11-10] MED LIST changes: -FLOM0.4C39 PO; +TAMS-18 PO
== END ==
LOC: M LABWUC 12:26
PROVIDERS: ATTEND Urology
DX: C61 Malignant neoplasm of prostate (principal)

== ENCOUNTER → 2025-02-14 | Outpatient (CLI) | payer MEDICARE, BC | LOC: M WUC 08:02 | PROVIDERS: ATTEND Urology | DX: C61 Malignant neoplasm of prostate (principal) ==

== ENCOUNTER → 2025-05-15 | Outpatient (CLI) | payer MEDICARE, BC ==
[~2025-05-15] MED LIST changes: -ROSU10TA61 PO; +ROSU10TA90 PO
== END ==
LOC: M EKG 07:18
PROVIDERS: ATTEND Anesthesiology
DX: Z01.818 Encounter for other preprocedural examination (principal); Z86.73 Personal history of transient ischemic attack (TIA), and cerebral infarction without residual deficits

== ENCOUNTER → 2025-05-15 | Outpatient (CLI) | payer MEDICARE, BC | LOC: M WUC 08:04 | PROVIDERS: ATTEND Urology | DX: C61 Malignant neoplasm of prostate (principal) ==

== ENCOUNTER 2025-05-23 06:08 | Day surgery (SDC) | payer MEDICARE, BC ==
[~2025-05-23] VITALS: Ht 177.8 cm; Wt 103.4 kg
[2025-05-23] MEDS: LR 1,000 ML IV SCH (07:08)
[2025-05-23] MEDS ORDERED: ROCURONIUM BROMIDE 50MG/5ML VIAL As Ordered ONE (07:14)
[2025-05-23] MEDS ORDERED: MIDAZOLAM INJ 2 MG/2 ML VIAL As Ordered ONE (07:14)
[2025-05-23] MEDS ORDERED: LIDOCAINE 2% 100 MG/5 ML SDV (FOR ANES.) As Ordered ONE (07:14)
[2025-05-23] MEDS ORDERED: SUGAMMADEX SODIUM 200 MG/2 ML VIAL As Ordered ONE (07:14)
[2025-05-23] MEDS ORDERED: ONDANSETRON 4MG/2ML VIAL As Ordered ONE (07:15)
[2025-05-23] MEDS ORDERED: ACETAMINOPHEN 1000MG/100ML IV BAG As Ordered ONE (07:15)
[2025-05-23] MEDS ORDERED: dexAMETHasone 4 MG/ML 1 ML VIAL As Ordered ONE (07:15)
[2025-05-23] MEDS ORDERED: KETOROLAC 30 MG/ML 1 ML VIAL As Ordered ONE (07:15)
[2025-05-23] MEDS: ceFAZolin SOD 2 GM IV ONCE IV ONE (07:30)
[2025-05-23] MEDS: FAMOTIDINE 20 MG/2 ML VIAL IVP ONE (08:00)
[2025-05-23] MEDS ORDERED: MORPHINE 4 MG/ML 1 ML VIAL IV PRN (09:10)
[2025-05-23] MEDS ORDERED: HYDROMORPHONE HCL 0.5 MG/0.5 ML SYRINGE IV PRN (09:10)
[2025-05-23 10:47] VITALS: BP 151/80; TEMP 97; O2SAT 97
== END 2025-05-23 11:00 | disposition home or self-care (01) ==
LOC: M SDC 06:08
PROVIDERS: ATTEND Surgery
DX: K43.0 Incisional hernia with obstruction, without gangrene (principal); I10 Essential (primary) hypertension; E78.00 Pure hypercholesterolemia, unspecified; K21.9 Gastro-esophageal reflux disease without esophagitis; Z79.899 Other long term (current) drug therapy; Z79.82 Long term (current) use of aspirin; Z86.73 Personal history of transient ischemic attack (TIA), and cerebral infarction without residual deficits; Z85.46 Personal history of malignant neoplasm of prostate; Z85.828 Personal history of other malignant neoplasm of skin; Z90.79 Acquired absence of other genital organ(s)
CPT/HCPCS: 49594; C1765; C1781; J0131; J0665; J0666; J0688; J1100; J1885; J2250; J2405; J3010